=== PATIENT | male | born 1970 | race Caucasian/White ===

== ENCOUNTER 2017-12-17 11:28 | Emergency (ER) | payer OTHER ==
[2017-12-17] MEDS ORDERED: GLUCAGON 1 MG/ML VIAL IVP STA (11:54)
[2017-12-17] MEDS ORDERED: ONDANSETRON 4 MG/2 ML VIAL IVP STA (11:57)
--- NOTE | 2017-12-17 12:01 | ED ---
Skin/Abscess/FB HPI - General Chief complaint: Skin/Abscess/Foreign Body Stated complaint: difficulty swallowing Time Seen by Provider: 12/17/17 11:49 Source: patient Mode of arrival: ambulatory Limitations: no limitations - History of Present Illness Initial comments: 46-year-old male presenting with foreign body in esophagus. Patient states her last around 7 PM he choked on some steak and has been unable to tolerate anything by mouth since then. He states he has to spit out his oral secretions and cannot drink water. States this happened 10 years prior. Denies any history of eosinophilic esophagitis. Denies any other symptoms. - Related Data Home Medications Medication Instructions Recorded Confirmed No Known Home Medications [No 12/17/17 12/17/17 Known Home Medications] Allergies Allergy/AdvReac Type Severity Reaction Status Date / Time amoxicillin Allergy Rash/Hives Verified 12/17/17 13:46 Review of Systems ROS Statement: Those systems with pertinent positive or pertinent negative responses have been documented in the HPI. Review of Systems Constitutional: Denies fever, chills Eyes: Denies change in vision, Denies pain Ears, nose, mouth, throat: Denies headaches, Denies sore throat Cardiovascular: Denies chest pain. Denies palpitations Respiratory: Denies shortness of breath, Denies cough Gastrointestinal: Unable to eat or drink. Abdominal pain. Genitourinary: Denies hematuria, Denies infections Musculoskeletal: Denies pain, Denies swelling Integumentary: Denies rash Neurological: Denies headache, focal weakness, focal numbness Psychiatric: Denies anxiety, Denies depression Hematologic/Lymphatic: Denies easy bleeding or bruising ROS Other: All systems not noted in ROS Statement are negative. Past Medical History Past Medical History: No Reported History History of Any Multi-Drug Resistant Organisms: None Reported Past Surgical History: No Surgical Hx Reported Past Psychological History: No Psychological Hx Reported Smoking Status: Never smoker Past Alcohol Use History: Occasional Past Drug Use History: None Reported General Exam - General Exam Comments Initial Comments: General: Awake, alert, No acute Distress HENT: Normocephalic. Atraumatic Eyes: PERRL. EOMI. No scleral icterus. No injected conjunctiva Neck: Full ROM Chest/Lungs: Clear to auscultation bilaterally. No wheezing, rhonchi, or rales Cardiac: Regular rate, rhythm. No murmurs or rubs Abdomen/GI: [Soft, nontender, nondistended. No rebound, guarding, or rigidity. Musculoskeletal: Full ROM Skin: Warm, dry, intact Neurologic: A/Ox3, no weakness, no sensory deficit, no abdnormal gait, no coordination deficit Limitations: no limitations Course Vital Signs 12/17/17 12/17/17 11:45 14:33 Temperature 98.1 F 98.8 F Pulse Rate 82 80 Respiratory 18 12 Rate Blood Pressure 134/79 119/75 O2 Sat by Pulse 100 98 Oximetry Medical Decision Making - Medical Decision Making 46-year-old male presenting with concern for esophageal foreign body. Initial exam the patient awake, alert, no acute distress. VSS. Initial examination patient is handling his secretions and is no respiratory distress. 1236 Patient now able to tolerate small sips of water. Still admits to sensation of foreign body in distal esophagus. Will reevaluate shortly. 1303 Patient again unable to tolerate his secretions or PO. Paging Dr. Rivers [address] Rivers. He is agreeable to coming in for endoscope. Patient updated. He is declining anything for pain at this time. His airway is still intact. 1547 Patient had bedside EGD. Food bolus advanced to stomach. On evaluation post- procedure the patient is awake, alert, and in NAD. VSS. Airway intact. Pain resolved. The patient still for outpatient follow with his primary care physician Dr. Rivers. Patient's parents are in the ER instructions. Disposition Clinical Impression: Esophageal obstruction due to food impaction Disposition: HOME SELF-CARE Instructions: Esophageal Foreign Body (ED) Referrals: Rex Miles MD [Primary Care Provider] - 1-2 days Jasmeet Rivers MD [STAFF PHYSICIAN] - 1-2 days Decision to Admit Reason: Admit from EC
[2017-12-17] MEDS ORDERED: KETOROLAC 30 MG/ML 1 ML VIAL IVP PRN (13:19)
[2017-12-17] MEDS ORDERED: ONDANSETRON 4 MG/2 ML VIAL IVP PRN (13:19)
[2017-12-17] MEDS ORDERED: NALOXONE 0.4 MG/ML 1 ML VIAL IV PRN (13:19)
[2017-12-17] MEDS ORDERED: LACTATED RINGERS 1,000 ML IV SCH (13:30)
[2017-12-17] MEDS ORDERED: SODIUM CHLORIDE 0.9% 500 ML IV ONE (14:51)
[2017-12-17] MEDS ORDERED: PROPOFOL 10 MG/ML 20 ML VIAL IV ONE (15:09)
[2017-12-17] MEDS ORDERED: LIDOCAINE 1% INJ 10MG/ML (20 ML MDV) ONE (15:09)
[2017-12-17 16:26] VITALS: BP 122/79; PULSE 78; RESP 18; TEMP 99.3
--- NOTE | 2017-12-17 20:29 | PCN ---
PROCEDURE NOTE PROCEDURE: Esophagogastroduodenoscopy and removal of esophageal foreign body and obtaining biopsies from the esophagus. PREOPERATIVE DIAGNOSIS: Obstructive dysphagia. POSTOPERATIVE DIAGNOSES: 1. Impacted piece of meat in the esophagus and advanced into the stomach with gentle pressure with the endoscope. 2. Corrugated esophagus consistent with eosinophilic esophagitis. Biopsies obtained to rule out other etiology as well. 3. Hiatal hernia and superficial tear at the level of the GE junction noted after advancing the impacted piece of meat into the stomach. Preparation and sedation were provided by Anesthesia. BRIEF CLINICAL HISTORY: The patient is a 46-year-old male who presented to the emergency room with the complaint of obstructive dysphagia with inability to swallow, including his saliva, that started the prior night when he was eating steak. Apparently, over the years, the patient has always taken his time 1 while eating, drinking water frequently to flush his food into the stomach. He reports episodes in the past of difficulty with rice that would improve once he drinks water. This time, the feeling of obstruction continued and was bringing back any liquids he takes in. In the emergency room, he did not improve following glucagon. We were called in to the emergency room for endoscopic intervention. The patient denied history of acid reflux and has not been on acid reflux medications. PROCEDURE: With the patient on his left lateral decubitus position and after informed consent and adequate sedation, I passed the Olympus GIF-160 video upper endoscope through the cricopharyngeus down the esophagus. There were secretions and food debris in the proximal esophagus that were suctioned and the impacted piece of meat was seen in the distal esophagus. With gentle pressure with the endoscope, I was able to dislodge the piece of meat into the stomach. The esophagus appeared corrugated, consistent with eosinophilic esophagitis. GE junction was around 41 cm from the incisors and there was a small sliding hiatal hernia. There was a superficial mucosal tear that I noted in the distal esophagus at the level of the GE junction where the piece of meat was impacted. The endoscope was passed into the stomach which was insufflated with air and inspected in detail, including the retroflexed view in the cardia. The esophagus did not appear significantly stenotic on that maneuver. No other abnormalities were noted in the stomach. The pyloric channel, duodenal bulb, postbulbar area and descending duodenum appeared within normal limits. I obtained biopsies from the esophagus before the endoscope was withdrawn. The patient tolerated the procedure well. PLAN: The patient was reassured. I suggested that he stay on clear liquids today and advance his diet tomorrow as tolerated. I recommended that he chew his food well, especially the foods that give him difficulty. In the meantime, I gave him a prescription for omeprazole 20 mg daily and I will see him in followup in the office in around 6-8 weeks. Based on his course and biopsy results, I will consider specific treatments if this proves to be eosinophilic esophagitis and he remains symptomatic. I will keep you updated on his progress. MMODL / MORENON: [id number] /
== END 2017-12-17 16:25 | disposition home or self-care (01) ==
LOC: EC 11:28 → UNDOADMOB 13:19 → 3OBS 13:19 → EC 16:25
DX: T18.128A Food in esophagus causing other injury, initial encounter (principal); K22.2 Esophageal obstruction; Z88.0 Allergy status to penicillin
CPT/HCPCS: 43239; 43247; 99284; 96374; 96375; 96361; J1610; J2405; J2001; J2704; 88305

== ENCOUNTER 2020-11-21 00:58 | Inpatient (IN) | payer BC, OTHER ==
[2020-11-21] MEDS ORDERED: ACETAMINOPHEN TAB 500 MG TAB PO STA (01:16)
[2020-11-21] MEDS ORDERED: ALBUTEROL HFA INHALER INHALATION STA (01:16)
[2020-11-21] MEDS ORDERED: IBUPROFEN 800 MG TAB PO STA (01:17)
--- NOTE | 2020-11-21 01:18 | ED ---
SOB HPI - General Chief Complaint: Shortness of Breath Stated Complaint: MITCH Time Seen by Provider: 11/21/20 01:16 Source: patient, family, RN notes reviewed, old records reviewed Mode of arrival: wheelchair Limitations: physical limitation - History of Present Illness Initial Comments: 49-year-old male DF for evaluation. Patient Dese for severe shortness of breath. Weakness not feeling well. Fever, he does have chills and bodyaches, muscle pain. Patient does feel he has coronavirus. No other significant medical history takes no medications. Patient is unsure of what exposure was MD Complaint: shortness of breath, cough, pain with inspiration -: days(s) Severity: moderate Severity scale (1-10): 6 Quality: dull, throbbing Improves With: nothing Worsens With: exertion, movement Known History Of: other (none) Context: recent URI Associated Symptoms: pain with inspiration, fever, cough Treatments Prior to Arrival: none - Related Data Home Medications Medication Instructions Recorded Confirmed No Known Home Medications 12/17/17 12/17/17 Allergies Allergy/AdvReac Type Severity Reaction Status Date / Time amoxicillin Allergy Rash/Hives Verified 11/21/20 01:10 Review of Systems ROS Statement: Those systems with pertinent positive or pertinent negative responses have been documented in the HPI. ROS Other: All systems not noted in ROS Statement are negative. Past Medical History Past Medical History: No Reported History History of Any Multi-Drug Resistant Organisms: None Reported Past Surgical History: No Surgical Hx Reported Past Psychological History: No Psychological Hx Reported Smoking Status: Never smoker Past Alcohol Use History: Occasional Past Drug Use History: None Reported General Exam Limitations: physical limitation General appearance: alert, in no apparent distress, anxious Head exam: Present: atraumatic, normocephalic, normal inspection Eye exam: Present: normal appearance, PERRL, EOMI. Absent: scleral icterus, conjunctival injection, periorbital swelling ENT exam: Present: normal exam, mucous membranes moist Neck exam: Present: normal inspection. Absent: tenderness, meningismus, lymphadenopathy Respiratory exam: Present: normal lung sounds bilaterally. Absent: respiratory distress, wheezes, rales, rhonchi, stridor Cardiovascular Exam: Present: normal rhythm, tachycardia, normal heart sounds. Absent: systolic murmur, diastolic murmur, rubs, gallop, clicks GI/Abdominal exam: Present: soft, normal bowel sounds. Absent: distended, tenderness, guarding, rebound, rigid Extremities exam: Present: normal inspection, full ROM, normal capillary refill. Absent: tenderness, pedal edema, joint swelling, calf tenderness Back exam: Present: normal inspection Neurological exam: Present: alert, oriented X3, CN II-XII intact Psychiatric exam: Present: normal affect, normal mood Skin exam: Present: warm, dry, intact, normal color. Absent: rash Course Vital Signs 11/21/20 11/21/20 01:06 02:40 Temperature 103.2 F H 101.4 F H Pulse Rate 109 H 92 Respiratory 20 20 Rate Blood Pressure 115/68 104/62 O2 Sat by Pulse 84 L 90 L Oximetry - Reevaluation(s) Reevaluation #1: 11/21/20 01:24 Medical record is reviewed Medical Decision Making - Lab Data Result diagrams: 11/21/20 01:33 11/21/20 01:33 Lab Results 11/21/20 11/21/20 11/21/20 Range/Units 01:33 01:33 01:33 WBC 9.5 (3.8-10.6) k/uL RBC 5.24 (4.30-5.90) m/uL Hgb 15.5 (13.0-17.5) gm/dL Hct 44.8 (39.0-53.0) % MCV 85.6 (80.0-100.0) fL MCH 29.5 (25.0-35.0) pg MCHC 34.5 (31.0-37.0) g/dL RDW 13.0 (11.5-15.5) % Plt Count 240 (150-450) k/uL MPV 7.3 Neutrophils % 87 % Lymphocytes % 8 % Monocytes % 4 % Eosinophils % 0 % Basophils % 1 % Neutrophils # 8.3 H (1.3-7.7) k/uL Lymphocytes # 0.7 L (1.0-4.8) k/uL Monocytes # 0.3 (0-1.0) k/uL Eosinophils # 0.0 (0-0.7) k/uL Basophils # 0.1 (0-0.2) k/uL PT 10.4 (9.0-12.0) sec INR 1.0 (<1.2) APTT 29.1 (22.0-30.0) sec Sodium 129 L (137-145) mmol/L Potassium 3.6 (3.5-5.1) mmol/L Chloride 92 L (98-107) mmol/L Carbon Dioxide 26 (22-30) mmol/L Anion Gap 11 mmol/L BUN 17 (9-20) mg/dL Creatinine 1.08 (0.66-1.25) mg/dL Est GFR (CKD-EPI)AfAm >90 (>60 ml/min/1.73 sqM) Est GFR (CKD-EPI)NonAf 81 (>60 ml/min/1.73 sqM) Glucose 132 H (74-99) mg/dL Plasma Lactic Acid Angus (0.7-2.0) mmol/L Calcium 8.1 L (8.4-10.2) mg/dL Magnesium 1.9 (1.6-2.3) mg/dL Total Bilirubin 1.2 (0.2-1.3) mg/dL AST 59 (17-59) U/L ALT 34 (4-49) U/L Alkaline Phosphatase 66 (38-126) U/L Lactate Dehydrogenase 2115 H (313-618) U/L C-Reactive Protein 233.2 H (<10.0) mg/L Total Protein 6.3 (6.3-8.2) g/dL Albumin 3.5 (3.5-5.0) g/dL 11/21/20 Range/Units 01:33 WBC (3.8-10.6) k/uL RBC (4.30-5.90) m/uL Hgb (13.0-17.5) gm/dL Hct (39.0-53.0) % MCV (80.0-100.0) fL MCH (25.0-35.0) pg MCHC (31.0-37.0) g/dL RDW (11.5-15.5) % Plt Count (150-450) k/uL MPV Neutrophils % % Lymphocytes % % Monocytes % % Eosinophils % % Basophils % % Neutrophils # (1.3-7.7) k/uL Lymphocytes # (1.0-4.8) k/uL Monocytes # (0-1.0) k/uL Eosinophils # (0-0.7) k/uL Basophils # (0-0.2) k/uL PT (9.0-12.0) sec INR (<1.2) APTT (22.0-30.0) sec Sodium (137-145) mmol/L Potassium (3.5-5.1) mmol/L Chloride (98-107) mmol/L Carbon Dioxide (22-30) mmol/L Anion Gap mmol/L BUN (9-20) mg/dL Creatinine (0.66-1.25) mg/dL Est GFR (CKD-EPI)AfAm (>60 ml/min/1.73 sqM) Est GFR (CKD-EPI)NonAf (>60 ml/min/1.73 sqM) Glucose (74-99) mg/dL Plasma Lactic Acid Angus 1.5 (0.7-2.0) mmol/L Calcium (8.4-10.2) mg/dL Magnesium (1.6-2.3) mg/dL Total Bilirubin (0.2-1.3) mg/dL AST (17-59) U/L ALT (4-49) U/L Alkaline Phosphatase (38-126) U/L Lactate Dehydrogenase (313-618) U/L C-Reactive Protein (<10.0) mg/L Total Protein (6.3-8.2) g/dL Albumin (3.5-5.0) g/dL - EKG Data -: EKG Interpreted by Me (EKG is sinus tachycardia 102, VA 146 QRS 84 QTc 479) Disposition Clinical Impression: COVID-19, Hypoxia, Coronavirus infection Disposition: ADMITTED IP TO THIS HOSP Condition: Serious Is patient prescribed a controlled substance at d/c from ED?: No Referrals: Rex Miles MD [Primary Care Provider] - 1-2 days
[2020-11-21 01:49] LABS: Basophils # (A) 0.1 k/uL (0-0.2); Basophils % (A) 1 %; Eosinophils % (A) 0 %; HCT 44.8 % (39.0-53.0); HGB 15.5 gm/dL (13.0-17.5); Lymphocytes # (A) 0.7 k/uL (1.0-4.8); Lymphocytes % (A) 8 %; MCH 29.5 pg (25.0-35.0); MCHC 34.5 g/dL (31.0-37.0); MCV 85.6 fL (80.0-100.0); Mean Platelet Volume 7.3; Monocytes # (A) 0.3 k/uL (0-1.0); Monocytes % (A) 4 %; Neutrophils # (A) 8.3 k/uL (1.3-7.7); Neutrophils % (A) 87 %; Platelet Count 240 k/uL (150-450); RBC 5.24 m/uL (4.30-5.90); WBC 9.5 k/uL (3.8-10.6)
[2020-11-21 02:03] LABS: ALT 34 U/L (4-49); AST 59 U/L (17-59); African American GFR (CKD) >90 (>60 ml/min/1.73 sqM); Albumin 3.5 g/dL (3.5-5.0); Alkaline Phosphatase 66 U/L (38-126); Anion Gap 11 mmol/L; Blood Urea Nitrogen 17 mg/dL (9-20); Calcium 8.1 mg/dL (8.4-10.2); Carbon Dioxide 26 mmol/L (22-30); Chloride 92 mmol/L (98-107); Glucose 132 mg/dL (74-99); LDH 2115 U/L (313-618); Magnesium 1.9 mg/dL (1.6-2.3); Non-African American GFR(CKD) 81 (>60 ml/min/1.73 sqM); Potassium 3.6 mmol/L (3.5-5.1); Sodium 129 mmol/L (137-145); Total Bilirubin 1.2 mg/dL (0.2-1.3); Total Protein 6.3 g/dL (6.3-8.2)
--- NOTE | 2020-11-21 02:15 | XR ---
EXAM: XR Chest, 1 View CLINICAL HISTORY: ITS.REASON XR Reason: Suspected COVID-19 pneumonia TECHNIQUE: Frontal view of the chest. COMPARISON: No relevant prior studies available. FINDINGS: Lungs: Diffuse bilateral patchy opacities most prominent in the right lung and left base. Pleural space: No pleural effusion. No pneumothorax. Heart: Unremarkable. No cardiomegaly. Mediastinum: Unremarkable. Bones/joints: Unremarkable. IMPRESSION: Diffuse bilateral patchy opacities most prominent in the right lung and left base consistent with multifocal infection, compatible with COVID pneumonia.
[2020-11-21 02:21] LABS: C Reactive Protein 233.2 mg/L (<10.0); Partial Thromboplastin Time 29.1 sec (22.0-30.0); Prothrombin Time 10.4 sec (9.0-12.0)
[2020-11-21] MEDS ORDERED: DEXAMETHASONE SOD PHOSPHATE 10 MG/ML 1 ML VIAL IV STA (03:00)
[2020-11-21] MEDS ORDERED: NALOXONE 0.4 MG/ML 1 ML VIAL IV PRN (03:00)
[2020-11-21] MEDS ORDERED: IBUPROFEN 400 MG TAB PO PRN (03:00)
[2020-11-21] MEDS: ALBUTEROL HFA INHALER INHALATION PRN ×4 (07:24→20:11)
[2020-11-21] MEDS ORDERED: ENOXAPARIN 40 MG/0.4 ML SYRINGE SQ SCH (09:00)
--- NOTE | 2020-11-21 10:28 | P.CNPUL ---
History of Present Illness Consult date: 11/21/20 Requesting physician: Pipo Vasques Reason for consult: dyspnea, abnormal CXR/CT Chief complaint: Shortness of breath, cough, congestion History of present illness: This is a very pleasant 49-year-old gentleman who follows with Dr. Miels is his primary care provider. He has no significant past medical history. No home medications. He presented here to the emergency room early this morning with complaints of increasing shortness of breath, weakness, fatigue, chills, body aches muscle pain. He felt he had the mora virus. He does have a daughter who is currently positive. His symptoms have been going on for approximately 1 week now. Chest x-ray does show diffuse bilateral patchy opacities more so on the right lung. White count 9.5. Hemoglobin 15.5. Lymphocytes 0.7. Sodium 12 9. Potassium 3.6. Creatinine 1.08. LDH 2115. C-reactive protein 233. Mora virus not detected. Patient is seen today in consultation in the emergency room. He is currently sitting up on a stretcher. Awake and alert in no acute distress. He is requiring 6 L high flow nasal cannula to maintain O2 saturations in the 90s. He said T-max of 103.2. Currently afebrile. His received Decadron. Motrin, albuterol. Review of Systems REVIEW OF SYSTEMS: CONSTITUTIONAL: Negative for generalized weakness, fatigue, fever. Denies any recent significant weight loss or weight gain. EYES: Denies change in vision. EARS, NOSE, MOUTH, THROAT: Denies headaches, denies sore throat. CARDIOVASCULAR: Denies chest pain, palpitations or syncopal episodes. RESPIRATORY: Positive for shortness of breath, cough, congestion no hemoptysis. GASTROINTESTINAL: Denies change in appetite, denies abdominal pain GENITOURINARY: Denies hematuria, denies infections. MUSKULOSKELETAL: Denies pain, denies swelling. INTEGUMENTARY: Denies rash, denies eczema. NEUROLOGICAL: Denies recent memory loss, no recent seizure activity. PSYCHIATRIC: Denies anxiety, denies depression. HEMATOLOGIC/LYMPHATIC: Denies anemia, denies enlarged lymph nodes. Past Medical History Past Medical History: No Reported History History of Any Multi-Drug Resistant Organisms: None Reported Past Surgical History: No Surgical Hx Reported Past Psychological History: No Psychological Hx Reported Smoking Status: Never smoker Past Alcohol Use History: Occasional Past Drug Use History: None Reported Medications and Allergies Home Medications Medication Instructions Recorded Confirmed Type No Known Home Medications 12/17/17 11/21/20 History Allergies Allergy/AdvReac Type Severity Reaction Status Date / Time amoxicillin Allergy Rash/Hives Verified 11/21/20 06:35 Physical Exam Vitals: Vital Signs Temp Pulse Resp BP Pulse Ox 11/21/20 09:36 90 L 11/21/20 09:00 81 26 H 126/80 90 L 11/21/20 08:30 80 21 119/81 95 11/21/20 08:00 79 19 130/84 95 11/21/20 07:32 93 L 11/21/20 07:30 77 24 120/80 90 L 11/21/20 07:14 97.4 F L 11/21/20 07:00 73 23 104/75 90 L 11/21/20 06:20 73 18 107/72 92 L 11/21/20 04:30 99.4 F 80 18 105/76 92 L 11/21/20 02:40 101.4 F H 92 20 104/62 90 L 11/21/20 01:06 103.2 F H 109 H 20 115/68 84 L Intake and Output 11/20/20 11/21/20 11/21/20 22:59 06:59 14:59 Other: Weight 122.47 kg GENERAL EXAM: Alert, pleasant 49-year-old gentleman, on 6 L nasal cannula, comfortable in no apparent distress. HEAD: Normocephalic. EYES: Normal reaction of pupils, equal size. NOSE: Clear with pink turbinates. THROAT: No erythema or exudates. NECK: No masses, no JVD. CHEST: No chest wall deformity. LUNGS: Equal air entry with scattered rhonchi, crackles in posterior bases. CVS: S1 and S2 normal with no audible murmur, regular rhythm. ABDOMEN: No hepatosplenomegaly, normal bowel sounds, no guarding or rigidity. SPINE: No scoliosis or deformity SKIN: No rashes CENTRAL NERVOUS SYSTEM: No focal deficits, tone is normal in all 4 extremities. EXTREMITIES: There is no peripheral edema. No clubbing, no cyanosis. Peripheral pulses are intact. Results - Laboratory Findings CBC and BMP: 11/21/20 01:33 11/21/20 01:33 PT/INR, D-dimer PT 10.4 sec (9.0-12.0) 11/21/20 01:33 INR 1.0 (<1.2) 11/21/20 01:33 Abnormal lab findings: Abnormal Labs 11/21/20 11/21/20 01:33 01:33 Neutrophils # 8.3 H Lymphocytes # 0.7 L Sodium 129 L Chloride 92 L Glucose 132 H Calcium 8.1 L Lactate Dehydrogenase 2115 H C-Reactive Protein 233.2 H - Diagnostic Findings Chest x-ray: image reviewed Assessment and Plan Assessment: 1 Acute hypoxic respiratory failure secondary to suspected CoVID 19 pneumonia though negative by PCR, versus community-acquired pneumonia 2 Elevated inflammatory markers secondary to above 3 Febrile illness secondary to above 4 Hyponatremia Plan: The patient was seen and evaluated by Dr. Pierre Chest x-ray and labs reviewed Suspicious for CoVID 19 pneumonia Obtain coronavirus antibodies Obtain pro-calcitonin Obtain a d-dimer Continue dexamethasone, Lovenox, vitamin supplements We will continue to follow and make further recommendations based on his clinical status I, the cosigning physician, performed a history & physical examination of the patient. Lungs sounds with scattered rhonchi, crackles in the posterior bases. Maintaining good O2 saturations in the 90s on 6 L high flow nasal cannula. I discussed the assessment and plan of care with my nurse practitioner, Nguyen Silva. I attest to the above consultation as dictated by her. Time with Patient: Greater than 30
[2020-11-21] MEDS: CHOLECALCIFEROL 25 MCG (1000 IU) TABLET PO SCH (12:37)
[2020-11-21] MEDS: ASCORBIC ACID 500 MG TAB PO SCH (12:37)
[2020-11-21] MEDS: ZINC SULFATE 220 MG CAP PO SCH (12:37)
[2020-11-21] MEDS ORDERED: LEVOFLOXACIN 750MG-D5W PMX 750 MG in DEXTROSE/WATER 1 150ML.BAG IVPB STA (15:28)
[2020-11-21] MEDS: FAMOTIDINE 20 MG TAB PO SCH ×2 (16:04→23:50)
[2020-11-21] MEDS: ACETAMINOPHEN TAB 325 MG TAB PO PRN ×2 (16:58→23:55)
--- NOTE | 2020-11-21 22:24 | P.HPIM ---
History of Present Illness H&P Date: 11/21/20 Chief Complaint: Short of breath History of presenting complaint: This is a pleasant 49-year-old patient who follows with Dr. Rex Miles. Patient otherwise in good health. Patient's older daughter has got COVID. One week patient started getting slowly progressively more short of breath. Cough. No sputum. Fever and chills. Some decrease in taste and smell. No diarrhea aching all over. Significant headache. Symptoms progressed decided to come in. Patient has tested positive for COVID. 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 . Family history: Reviewed, noncontributory to presentation Physical examination: VITAL SIGNS: 101.4, 92, 20, 104/62, 90% on 4 L GENERAL: BMI 34.7, sitting up on the bed, tired. EYES: Pupils equal. Conjunctiva normal. HEENT: External appearance of nose and ears normal, oral cavity grossly normal. NECK: JVD not raised; masses not palpable. HEART: First and second heart sounds are normal; no edema. LUNGS: Respiratory rate increased, fine expiratory crackles. ABDOMEN: Soft, nontender, liver spleen not palpable, no masses palpable. PSYCH: Alert and oriented x3; mood and affect tiredl. NEUROLOGICAL: Cranial nerves grossly intact; no facial asymmetry, power and sensation grossly intact. LYMPHATICS: No lymph nodes palpable in the axilla and neck INVESTIGATIONS, reviewed in the clinical context: WBC 9.5 hemoglobin 15.5 platelets 240 lymphocytes 0.7 sodium 129 potassium 3.6 creatinine 1.08 CRP 223 pro-calcitonin 0.68 Coronavirus [PCR]-not detected by rapid testing d-dimer 0.91 EKG tracing personally reviewed by me-normal sinus rhythm nonspecific ST segment changes Chest x-ray film personally reviewed by me-bilateral infiltrates Assessment and plan: -This is a patient is given a classical presentation of COVID 19 pneumonia. With several systemics features positive d-dimer positive CRP and a rather classical checks x-ray finding. Given the patient's rapid test for PCR is negative. We will repeat the same. Patient be placed on dexamethasone Lovenox. Pulmonary consulted -Acute hypoxic respiratory failure from COVID 19 pneumonia -Obesity BMI 34.7 -Sepsis from COVID 19 pneumonia Care was discussed with the patient. Questions answered. Given the complexity and severity of patient's condition expect the patient to be in the hospital at least for 2 overnights Past Medical History Past Medical History: No Reported History History of Any Multi-Drug Resistant Organisms: None Reported Past Surgical History: No Surgical Hx Reported Past Psychological History: No Psychological Hx Reported Smoking Status: Never smoker Past Alcohol Use History: Occasional Past Drug Use History: None Reported Medications and Allergies Home Medications Medication Instructions Recorded Confirmed Type No Known Home Medications 12/17/17 11/21/20 History Allergies Allergy/AdvReac Type Severity Reaction Status Date / Time amoxicillin Allergy Rash/Hives Verified 11/21/20 06:35 Physical Exam Vitals: Vital Signs Temp Pulse Resp BP Pulse Ox 11/21/20 09:36 90 L 11/21/20 09:00 81 26 H 126/80 90 L 11/21/20 08:30 80 21 119/81 95 11/21/20 08:00 79 19 130/84 95 11/21/20 07:32 93 L 11/21/20 07:30 77 24 120/80 90 L 11/21/20 07:14 97.4 F L 11/21/20 07:00 73 23 104/75 90 L 11/21/20 06:20 73 18 107/72 92 L 11/21/20 04:30 99.4 F 80 18 105/76 92 L 11/21/20 02:40 101.4 F H 92 20 104/62 90 L 11/21/20 01:06 103.2 F H 109 H 20 115/68 84 L Intake and Output 11/20/20 11/21/20 11/21/20 22:59 06:59 14:59 Other: Weight 122.47 kg Results CBC & Chem 7: 11/21/20 01:33 11/21/20 01:33 Labs: Abnormal Lab Results - Last 24 Hours (Table) 11/21/20 11/21/20 Range/Units 01:33 01:33 Neutrophils # 8.3 H (1.3-7.7) k/uL Lymphocytes # 0.7 L (1.0-4.8) k/uL Sodium 129 L (137-145) mmol/L Chloride 92 L (98-107) mmol/L Glucose 132 H (74-99) mg/dL Calcium 8.1 L (8.4-10.2) mg/dL Lactate Dehydrogenase 2115 H (313-618) U/L C-Reactive Protein 233.2 H (<10.0) mg/L
[2020-11-21] MEDS: ENOXAPARIN 40 MG/0.4 ML SYRINGE SQ SCH (23:51)
[2020-11-22] MEDS: ALBUTEROL HFA INHALER INHALATION PRN ×5 (01:27→20:42)
--- NOTE | 2020-11-22 07:02 | CONS ---
CONSULTATION DATE OF SERVICE: 11/21/2020 REASON FOR CONSULTATION: Pneumonia. HISTORY OF PRESENT ILLNESS: The patient is a 49-year-old male with no significant past medical history. 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 The patient's daughter got sick with COVID about a week and half ago. Patient started getting sick about a week ago. Symptoms have been mostly generalized weakness, no energy and he started having a cough which has been moderate in intensity. No significant sputum production with associated shortness of breath. With these symptoms, in addition to the fever, chills and body aches, the patient presented to the hospital with concern for COVID-19 infection. On arrival to the ER, patient did have a fever of 103 degrees Fahrenheit. The patient was tachycardic with a heart rate of 109. Patient was hypoxic with O2 sats of 84%. The patient did have a normal white count with lymphopenia. D-dimer elevated 0.91 and LDH and CRP elevated. Procalcitonin 0.68. Mora PCR came back negative which is currently repeated and is pending. The patient did have a chest x-ray with bilateral diffuse infiltrate most prominent in the right lung and left base consistent with multifocal infection. The patient was admitted to the hospital. Infectious Disease was consulted for further management of antibiotic therapy. REVIEW OF SYSTEMS: Positive points have been mentioned in HPI. Rest of systems are negative. PAST MEDICAL HISTORY: No major illnesses. PAST SURGICAL HISTORY: No surgeries. SOCIAL HISTORY: Patient denies smoking. Occasionally drinks. No drug use. FAMILY HISTORY: No pertinent findings noticed. ALLERGIES: AMOXICILLIN with rash. No history of anaphylaxis. MEDICATIONS: The patient is currently on Tylenol, Ventolin, vitamin C, vitamin D3, dexamethasone, Lovenox, Pepcid, Motrin, Narcan and zinc. PHYSICAL EXAMINATION: VITAL SIGNS: Blood pressure 128/75 with a pulse of 84, temperature 98.2, he is 90% on 6 L nasal cannula. GENERAL DESCRIPTION: Patient is a middle-aged male lying in bed in no distress. No tachypnea or accessory muscles of respiration use. HEENT: Examination shows no pallor or scleral icterus. Oral mucous membrane is dry. NECK: Trachea central, no thyromegaly. LUNGS: Unlabored breathing, coarse breath sounds bilaterally. No wheeze. HEART: S1-S2, regular rate and rhythm. ABDOMEN: Soft, no tenderness. No guarding or rigidity. EXTREMITIES: No edema of the feet. SKIN: No rash or mass palpable. NEUROLOGICAL: Patient is awake, alert, oriented times three. Mood and affect normal. LABS: Hemoglobin 15.5, white count 9.5, lymphocyte count 0.7. BUN of 17, creatinine 1.08. Liver enzymes are normal. LDH and CRP are elevated. Chest x-ray report as mentioned above. DIAGNOSTIC IMPRESSION AND PLAN: Patient admitted to the hospital with sepsis in this patient who did have fever and tachycardia source is likely pneumonia in high clinical suspicion for COVID-19 infection, possible false negative initial COVID testing and repeat testing has been ordered which is currently pending. The patient also has elevated procalcitonin. Underlying bacterial pneumonia not entirely excluded either with diffuse interstitial infiltrate. We will need to cover for atypical pathogen. PLAN: 1. We will try to obtain sputum for Gram stain and culture and check urine for Legionella antigen. 2. Repeat COVID testing . 3. We will start the patient on Levaquin 750 mg daily. 4. Continue patient on dexamethasone, Lovenox, zinc, ascorbic acid. 5. Droplet isolation and respiratory support. 6. We will follow on his clinical condition to further adjust medication if needed. Thank you for this consultation. Will follow this patient along with you. MMMITCHL / MORENON: [id number] /
[2020-11-22] MEDS: ASCORBIC ACID 500 MG TAB PO SCH (08:30)
[2020-11-22] MEDS: FAMOTIDINE 20 MG TAB PO SCH ×2 (08:30→19:46)
[2020-11-22] MEDS: ZINC SULFATE 220 MG CAP PO SCH (08:30)
[2020-11-22] MEDS: CHOLECALCIFEROL 25 MCG (1000 IU) TABLET PO SCH (08:30)
[2020-11-22] MEDS: ACETAMINOPHEN TAB 325 MG TAB PO PRN (08:30)
[2020-11-22] MEDS: ENOXAPARIN 40 MG/0.4 ML SYRINGE SQ SCH ×2 (08:34→19:46)
[2020-11-22] MEDS ORDERED: dexAMETHasone 2 MG TAB PO SCH (09:00)
[2020-11-22] MEDS ORDERED: LEVOFLOXACIN 750 MG TAB PO SCH (09:00)
[2020-11-22 11:30] LABS: Basophils # (A) 0.02 X 10*3/uL (0.00-0.10); Basophils % (A) 0.2 %; Eosinophils # (A) 0 X 10*3/uL (0.04-0.35); Eosinophils % (A) 0 %; HCT 46.4 % (39.6-50.0); HGB 15.6 g/dL (13.0-17.0); Lymphocytes # (A) 0.87 X 10*3/uL (0.90-5.00); MCH 29.2 pg (27.0-32.0); MCHC 33.6 g/dL (32.0-37.0); MCV 86.9 fL (80.0-97.0); Mean Platelet Volume 10.5 fL (9.5-12.2); Monocytes # (A) 0.41 X 10*3/uL (0.20-1.00); Monocytes % (A) 3.3 %; Neutrophils # (A) 11.11 X 10*3/uL (1.80-7.70); Neutrophils % (A) 88.8 %; Platelet Count 319 X 10*3/uL (140-440); RBC 5.34 X 10*6/uL (4.40-5.60); RDW 13.4 % (11.5-14.5)
[2020-11-22 11:44] LABS: African American GFR (CKD) 75.3 (60.0-200.0); Albumin 4.2 g/dL (3.80-4.90); Albumin/Globulin Ratio 1.91 (1.60-3.17); Anion Gap 9.9 mmol/L (4.00-12.00); BUN/Creat Ratio 19.23 Ratio (12.00-20.00); Calcium 8.9 mg/dL (8.7-10.3); Carbon Dioxide 30.1 mmol/L (21.6-31.8); Globulin 2.2 g/dL (1.6-3.3); Magnesium 2.4 mg/dL (1.5-2.4); Phosphorus 2.8 mg/dL (2.4-5.1); Potassium 4.4 mmol/L (3.5-5.5); Total Bilirubin 0.9 mg/dL (0.3-1.2); Total Protein 6.4 g/dL (6.2-8.2)
--- NOTE | 2020-11-22 15:45 | P.PN ---
Subjective Progress Note Date: 11/22/20 Principal diagnosis: Acute respiratory failure. This is a very pleasant 49-year-old gentleman who follows with Dr. Miles is his primary care provider. He has no significant past medical history. No home medications. He presented here to the emergency room early this morning with complaints of increasing shortness of breath, weakness, fatigue, chills, body aches muscle pain. He felt he had the woods virus. He does have a daughter who is currently positive. His symptoms have been going on for approximately 1 week now. Chest x-ray does show diffuse bilateral patchy opacities more so on the right lung. White count 9.5. Hemoglobin 15.5. Lymphocytes 0.7. Sodium 129. Potassium 3.6. Creatinine 1.08. LDH 2115. C-reactive protein 233. Woods virus not detected. Patient is seen today in consultation in the emergency room. He is currently sitting up on a stretcher. Awake and alert in no acute distress. He is requiring 6 L high flow nasal cannula to maintain O2 saturations in the 90s. He said T-max of 103.2. Currently afebrile. His received Decadron. Motrin, albuterol. Progress note dated 11/22/2020. This is a pleasant 49-year-old male who sees Dr. Rex Miles as his primary care provider. He has no significant past medical history. He takes no medications at home. He presented to the emergency room with complaints of increasing shortness of breath, he is, fatigue, chills, body aches, muscle pain. He thought he might have COVID 19. He was exposed to his daughter who tested positive. His symptoms have been present for about one week or so. Chest x-ray showed diffuse bilateral patchy infiltrates. COVID testing here was negative. Currently, he is on O2 high flow oxygen, 8 L, with a saturation of 90%. White count is 12.5, hemoglobin 15.6, hematocrit 46.4, platelet count 319,000. D- dimer was 0.91. Sodium 135, potassium 4.4, chlorides 95, CO2 30, anion gap 10, BUN 25, and creatinine 1.3. His repeat test was in fact positive. Objective - Vital Signs Vital signs: Vital Signs Temp 98.2 F 11/22/20 13:53 Pulse 88 11/22/20 13:53 Resp 20 11/22/20 13:53 BP 117/77 11/22/20 13:53 Pulse Ox 90 L 11/22/20 13:53 Intake & Output 11/21/20 11/22/20 11/22/20 18:59 06:59 18:59 Intake Total 300 Output Total 500 Balance -500 300 Weight 122.47 kg Intake: Oral 300 Output: Urine 500 - Exam No acute distress, oriented 3. Currently, patient on 8 L high flow oxygen therapy. No conversational dyspnea or audible wheezing, or use of accessory muscles. HEENT examination is grossly unremarkable. Mucous membranes are moist. No oral lesions. Neck supple. Full range of motion. No adenopathy thyromegaly or neck vein distention. Cardiovascular examination reveals regular rhythm rate. S1-S2 normal. No S3 or S4. No discernible murmur noted. Heart rate is 88 bpm. Lungs reveal scattered bilateral rhonchi and a few scattered crackles. No whe ezes. Breath sounds equal bilaterally. Abdomen soft bowel sounds are heard. No masses or tenderness. Extremities are intact. No cyanosis clubbing or edema. Skin is without rash or lesion. Neurologic examination is brief but nonfocal. - Labs CBC & Chem 7: 11/22/20 07:34 11/22/20 07:34 Labs: Abnormal Lab Results - Last 24 Hours (Table) 11/21/20 11/22/20 11/22/20 Range/Units 13:40 07:34 07:34 WBC 12.50 H (4.50-10.00) X 10*3/uL Immature Gran # 0.09 H (0.00-0.04) X 10*3/uL Neutrophils # 11.11 H (1.80-7.70) X 10*3/uL Lymphocytes # 0.87 L (0.90-5.00) X 10*3/uL Eosinophils # 0 L (0.04-0.35) X 10*3/uL Chloride 95 L (96-109) mmol/L AST 50 H (14-35) U/L Coronavirus (PCR) Detected A (Not Detected) Microbiology - Last 24 Hours (Table) 11/21/20 20:14 Gram Stain - Preliminary Sputum Sputum Culture - Preliminary Assessment and Plan Assessment: Acute hypoxemic respiratory failure, secondary to COVID 19 pneumonia/pneumonitis, testing positive on his second test. Elevated inflammatory markers secondary to COVID 19 pneumonia. Fever, secondary to COVID 19. Mild hyponatremia, resolved. Plan: Plan dated 11/22/2020. The patient's second COVID test was in fact positive. He suspected as much. Currently, the patient's on an albuterol inhaler, vitamin C, vitamin D3, zinc, Decadron, and Lovenox. The patient is also on Levaquin, but now that the COVID test came back positive, I think the Levaquin can be discontinued. One could argue for the addition of REM. We will continue to follow. Prognosis is guarded. Time with Patient: Less than 30
[2020-11-22] MEDS ORDERED: REMDESIVIR 200 MG in SODIUM CHLORIDE 0.9% 250 ML IVPB ONE (17:00)
--- NOTE | 2020-11-22 17:01 | PN ---
PROGRESS NOTE DATE OF SERVICE: 11/22/2020 REASON FOR FOLLOWUP: COVID-19 pneumonia. INTERVAL HISTORY: Patient is currently afebrile. The patient is breathing slightly comfortably however he is still requiring high-flow oxygen and saturating around 90%. Denies having any chest pain. He did have a cough with occasional sputum. No hemoptysis. No abdominal pain. No diarrhea. PHYSICAL EXAMINATION: Blood pressure is 117/77 with a pulse of 88, temperature of 98.2. He is 90% on 8 liters nasal cannula. GENERAL DESCRIPTION: A middle-aged male lying in bed in no distress. RESPIRATORY SYSTEM: Unlabored breathing, coarse breath sounds in the bases bilaterally. HEART: S1, S2. Regular rate and rhythm. ABDOMEN: Soft, no tenderness. LABS: Hemoglobin is 15.2, white count 12.5. D-dimer is 0.91. Urine for Legionella is negative. COVID PCR came back positive. DIAGNOSTIC IMPRESSION AND PLAN: Patient with acute COVID-19 pneumonia in this patient who is still requiring high flow oxygen. Symptoms have been about a week. Clinically doubt secondary bacterial pneumonia. We will discontinue the Levaquin. Remdesivir has been started and that will help the patient. Continue supportive care. MMODL / IJN: [id number] /
--- NOTE | 2020-11-22 22:57 | P.PN ---
Progress Note - Text Progress Note Date: 11/22/20 Chief Complaint: Short of breath History of presenting complaint: This is a pleasant 49-year-old patient who follows with Dr. Rex Miles. Patient otherwise in good health. Patient's older daughter has got COVID. One week patient started getting slowly progressively more short of breath. Cough. No sputum. Fever and chills. Some decrease in taste and smell. No diarrhea aching all over. Significant headache. Symptoms progressed decided to come in. Patient has tested positive for COVID. Today-sitting up in bed. Short of breath. Nasal cannula. A bit congested. Eating some. Review of systems: Was done for constitutional, cardiovascular, GI, pulmonary. relevant finding as above Active Medications Acetaminophen (Acetaminophen Tab 325 Mg Tab) 650 mg PO Q6HR PRN PRN Reason: Mild Pain or Fever > 100.5 Last Admin: 11/22/20 08:30 Dose: 650 mg Documented by: Albuterol Sulfate (Albuterol Hfa Inhaler) 2 puff INHALATION RT-QID PRN PRN Reason: Shortness Of Breath Or Wheezing Last Admin: 11/22/20 20:42 Dose: 2 puff Documented by: Ascorbic Acid (Ascorbic Acid 500 Mg Tab) 1,000 mg PO DAILY [facility] Last Admin: 11/22/20 08:30 Dose: 1,000 mg Documented by: Cholecalciferol (Cholecalciferol 25 Mcg (1000 Iu) Tablet) 25 mcg PO DAILY [facility] Last Admin: 11/22/20 08:30 Dose: 25 mcg Documented by: Dexamethasone (Dexamethasone 2 Mg Tab) 6 mg PO DAILY [facility] Last Admin: 11/22/20 08:30 Dose: 6 mg Documented by: Enoxaparin Sodium (Enoxaparin 40 Mg/0.4 Ml Syringe) 40 mg SQ BID [facility] Last Admin: 11/22/20 19:46 Dose: 40 mg Documented by: Famotidine (Famotidine 20 Mg Tab) 20 mg PO BID [facility] Last Admin: 11/22/20 19:46 Dose: 20 mg Documented by: Remdesivir 100 mg/ Sodium (Chloride) 250 mls @ 250 mls/hr IVPB DAILY@1700 [facility] Stop: 11/26/20 17:59 Ibuprofen (Ibuprofen 400 Mg Tab) 400 mg PO Q6HR PRN PRN Reason: Mild Pain or Fever > 100.5 Naloxone HCl (Naloxone 0.4 Mg/Ml 1 Ml Vial) 0.2 mg IV Q2M PRN PRN Reason: Opioid Reversal Zinc Sulfate (Zinc Sulfate 220 Mg Cap) 220 mg PO DAILY [facility] Last Admin: 11/22/20 08:30 Dose: 220 mg Documented by: Past medical history to include: 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 . Family history: Reviewed, noncontributory to presentation Physical examination: VITAL SIGNS: 98.2, 88, 20, 117/77, 90% on 8 L GENERAL: A reclining in bed, tired, short of breath NEUROLOGICAL: Cranial nerves grossly intact. Moving all 4 limbs PSYCH: Alert and oriented x3; mood and affect tiredl. Rest of the exam per pulmonary and nursing INVESTIGATIONS, reviewed in the clinical context: November 22: WBC 12.5 hemoglobin 15.6 Repeat Coronavirus [PCR]: November 21: Detected WBC 9.5 hemoglobin 15.5 platelets 240 lymphocytes 0.7 sodium 129 potassium 3.6 creatinine 1.08 CRP 223 pro-calcitonin 0.68 Coronavirus [PCR]-not detected by rapid testing d-dimer 0.91 EKG tracing personally reviewed by me-normal sinus rhythm nonspecific ST segment changes Chest x-ray film personally reviewed by me-bilateral infiltrates Assessment and plan: -COVID 19 pneumonia. dexamethasone Lovenox. Some clinical worsening. Remdesivir -Acute hypoxic respiratory failure from COVID 19 pneumonia. Worsening. On 8 L nasal cannula -Obesity BMI 34.7 -Sepsis from COVID 19 pneumonia Care was discussed with the patient. Follow with pulmonary, ID
[2020-11-23] MEDS: ALBUTEROL HFA INHALER INHALATION PRN ×3 (08:31→21:55)
[2020-11-23] MEDS: CHOLECALCIFEROL 25 MCG (1000 IU) TABLET PO SCH (09:14)
[2020-11-23] MEDS: ENOXAPARIN 40 MG/0.4 ML SYRINGE SQ SCH ×2 (09:14→20:58)
[2020-11-23] MEDS: ASCORBIC ACID 500 MG TAB PO SCH (09:15)
[2020-11-23] MEDS: FAMOTIDINE 20 MG TAB PO SCH ×2 (09:15→20:58)
[2020-11-23] MEDS: DEXAMETHASONE SOD PHOSPHATE 10 MG/ML 1 ML VIAL IV SCH (09:15)
[2020-11-23] MEDS: ZINC SULFATE 220 MG CAP PO SCH (09:15)
--- NOTE | 2020-11-23 09:45 | XR ---
EXAMINATION TYPE: XR chest 1V portable DATE OF EXAM: 11/23/2020 COMPARISON: 11/21/2020 INDICATION: Pneumonia TECHNIQUE: Single frontal view of the chest is obtained. FINDINGS: The heart size is normal. The pulmonary vasculature is normal. Patchy bilateral lung infiltrates are present similar to prior study. Findings could be compatible wi th atypical pneumonia. IMPRESSION: 1. Stable patchy bilateral lung infiltrates. Continued follow-up is recommended.
--- NOTE | 2020-11-23 15:02 | P.PN ---
Subjective Progress Note Date: 11/23/20 Principal diagnosis: Acute respiratory failure. This is a very pleasant 49-year-old gentleman who follows with Dr. Miles is his primary care provider. He has no significant past medical history. No home medications. He presented here to the emergency room early this morning with complaints of increasing shortness of breath, weakness, fatigue, chills, body aches muscle pain. He felt he had the woods virus. He does have a daughter who is currently positive. His symptoms have been going on for approximately 1 week now. Chest x-ray does show diffuse bilateral patchy opacities more so on the right lung. White count 9.5. Hemoglobin 15.5. Lymphocytes 0.7. Sodium 129. Potassium 3.6. Creatinine 1.08. LDH 2115. C-reactive protein 233. Woods virus not detected. Patient is seen today in consultation in the emergency room. He is currently sitting up on a stretcher. Awake and alert in no acute distress. He is requiring 6 L high flow nasal cannula to maintain O2 saturations in the 90s. He said T-max of 103.2. Currently afebrile. His received Decadron. Motrin, albuterol. Progress note dated 11/22/2020. This is a pleasant 49-year-old male who sees Dr. Rex Miles as his primary care provider. He has no significant past medical history. He takes no medications at home. He presented to the emergency room with complaints of increasing shortness of breath, he is, fatigue, chills, body aches, muscle pain. He thought he might have COVID 19. He was exposed to his daughter who tested positive. His symptoms have been present for about one week or so. Chest x-ray showed diffuse bilateral patchy infiltrates. COVID testing here was negative. Currently, he is on O2 high flow oxygen, 8 L, with a saturation of 90%. White count is 12.5, hemoglobin 15.6, hematocrit 46.4, platelet count 319,000. D- dimer was 0.91. Sodium 135, potassium 4.4, chlorides 95, CO2 30, anion gap 10, BUN 25, and creatinine 1.3. His repeat test was in fact positive. Progress note dated 11/23/2020. Pleasant 49-year-old male, who sees Dr. Rex Miles as his primary. He has no symptoms and past medical history, and takes no medications at home. He presented to the emergency department with complaints of increasing shortness of breath, fatigue, chills, body aches, and muscle pain. He thought he might have COVID 19. He was apparently exposed to his daughter who tested positive. His initial test was negative, but his symptoms, x-rays, and laboratory data all pointed towards coronavirus as the etiology of his symptoms. Sure enough, his repeat test was positive. D-dimer today was 1.24. C-reactive protein was 82.9. The patient is feeling maybe a bit better today than he did yesterday. Currently he is on 8 L high flow O2, with saturations of 93%. Chest x-ray showed stable patchy bilateral infiltrates. Objective - Vital Signs Vital signs: Vital Signs Temp 98.1 F 11/23/20 13:45 Pulse 72 11/23/20 13:45 Resp 20 11/23/20 13:45 BP 122/79 11/23/20 13:45 Pulse Ox 93 L 11/23/20 13:45 Intake & Output 11/22/20 11/23/20 11/23/20 18:59 06:59 18:59 Intake Total 600 240 Output Total 400 Balance 200 240 Intake: Oral 600 240 Output: Urine 400 Other: # Voids 2 - Exam No acute distress, oriented 3. Currently, patient on 8 L high flow oxygen therapy. No conversational dyspnea or audible wheezing, or use of accessory muscles. HEENT examination is grossly unremarkable. Mucous membranes are moist. No oral lesions. Neck supple. Full range of motion. No adenopathy thyromegaly or neck vein distention. Cardiovascular examination reveals regular rhythm rate. S1-S2 normal. No S3 or S4. No discernible murmur noted. Heart rate is 72 bpm. Lungs reveal diffuse bilateral crackles and rhonchi. There are no wheezes. Breath sounds equal bilaterally. Exam is essentially unchanged. Abdomen soft bowel sounds are heard. No masses or tenderness. Extremities are intact. No cyanosis clubbing or edema. Skin is without rash or lesion. Neurologic examination is brief but nonfocal. - Labs CBC & Chem 7: 11/22/20 07:34 11/22/20 07:34 Labs: Abnormal Lab Results - Last 24 Hours (Table) 11/22/20 11/23/20 11/23/20 Range/Units 07:34 06:43 06:43 D-Dimer 1.24 H (<0.60) mg/L FEU C-Reactive Protein 82.9 H (<10.0) mg/L SARS-CoV-2 Ab,Total Reactive A (Non-Reactive) Microbiology - Last 24 Hours (Table) 11/21/20 16:20 Blood Culture - Preliminary Blood No Growth after 24 hours 11/21/20 16:00 Blood Culture - Preliminary Blood No Growth after 24 hours Assessment and Plan Assessment: Acute hypoxemic respiratory failure, secondary to COVID 19 pneumonia/pneumonitis, testing positive on his second test. Elevated inflammatory markers secondary to COVID 19 pneumonia. Fever, secondary to COVID 19. Mild hyponatremia, resolved. Plan: Plan dated 11/23/2020. The patient's second COVID test was in fact positive. We suspected as much. Currently, the patient's on an albuterol inhaler, vitamin C, vitamin D3, zinc, Decadron, and Lovenox. The patient's Levaquin was discontinued. We did start him on REM. His first dose was yesterday. He will get over the next 4 days. We will continue to watch patient closely. The patient's chest x-ray is unchanged. His overall prognosis is guarded. Additional recommendations and suggestions are forthcoming. Time with Patient: Less than 30
[2020-11-23] MEDS: REMDESIVIR 100 MG in SODIUM CHLORIDE 0.9% 250 ML IVPB SCH (16:18)
--- NOTE | 2020-11-23 21:32 | P.PN ---
Progress Note - Text Progress Note Date: 11/23/20 Chief Complaint: Short of breath History of presenting complaint: This is a pleasant 49-year-old patient who follows with Dr. Rex Miles. Patient otherwise in good health. Patient's older daughter has got COVID. One week patient started getting slowly progressively more short of breath. Cough. No sputum. Fever and chills. Some decrease in taste and smell. No diarrhea aching all over. Significant headache. Symptoms progressed decided to come in. Patient has tested positive for COVID. Today-eating some. Short of breath. Congestion the chest. On 8 L. Tired Review of systems: Was done for constitutional, cardiovascular, GI, pulmonary. relevant finding as above Active Medications Acetaminophen (Acetaminophen Tab 325 Mg Tab) 650 mg PO Q6HR PRN PRN Reason: Mild Pain or Fever > 100.5 Last Admin: 11/22/20 08:30 Dose: 650 mg Documented by: Albuterol Sulfate (Albuterol Hfa Inhaler) 2 puff INHALATION RT-QID PRN PRN Reason: Shortness Of Breath Or Wheezing Last Admin: 11/23/20 15:58 Dose: 2 puff Documented by: Ascorbic Acid (Ascorbic Acid 500 Mg Tab) 1,000 mg PO DAILY [facility] Last Admin: 11/23/20 09:15 Dose: 1,000 mg Documented by: Cholecalciferol (Cholecalciferol 25 Mcg (1000 Iu) Tablet) 25 mcg PO DAILY [facility] Last Admin: 11/23/20 09:14 Dose: 25 mcg Documented by: Dexamethasone Sodium Phosphate (Dexamethasone Sod Phosphate 10 Mg/Ml 1 Ml Vial) 6 mg IV DAILY [facility] Last Admin: 11/23/20 09:15 Dose: 6 mg Documented by: Enoxaparin Sodium (Enoxaparin 40 Mg/0.4 Ml Syringe) 40 mg SQ BID [facility] Last Admin: 11/23/20 20:58 Dose: 40 mg Documented by: Famotidine (Famotidine 20 Mg Tab) 20 mg PO BID [facility] Last Admin: 11/23/20 20:58 Dose: 20 mg Documented by: Remdesivir 100 mg/ Sodium (Chloride) 250 mls @ 250 mls/hr IVPB DAILY@1700 [facility] Stop: 11/26/20 17:59 Last Admin: 11/23/20 16:18 Dose: 250 mls/hr Documented by: Ibuprofen (Ibuprofen 400 Mg Tab) 400 mg PO Q6HR PRN PRN Reason: Mild Pain or Fever > 100.5 Naloxone HCl (Naloxone 0.4 Mg/Ml 1 Ml Vial) 0.2 mg IV Q2M PRN PRN Reason: Opioid Reversal Zinc Sulfate (Zinc Sulfate 220 Mg Cap) 220 mg PO DAILY [facility] Last Admin: 11/23/20 09:15 Dose: 220 mg Documented by: Past medical history to include: 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 . Family history: Reviewed, noncontributory to presentation Physical examination: VITAL SIGNS: 97.8, 81, 22, 124/81, 90% on 8 L GENERAL: reclining in bed, tired, short of breath NEUROLOGICAL: Cranial nerves grossly intact. Moving all 4 limbs PSYCH: Alert and oriented x3; mood and affect tiredl. Rest of the exam per pulmonary and nursing INVESTIGATIONS, reviewed in the clinical context: November 23: D-dimer 1.24 CRP 82.9 November 22: WBC 12.5 hemoglobin 15.6 Repeat Coronavirus [PCR]: November 21: Detected WBC 9.5 hemoglobin 15.5 platelets 240 lymphocytes 0.7 sodium 129 potassium 3.6 creatinine 1.08 CRP 223 pro-calcitonin 0.68 Coronavirus [PCR]-not detected by rapid testing d-dimer 0.91 EKG tracing personally reviewed by me-normal sinus rhythm nonspecific ST segment changes Chest x-ray film personally reviewed by me-bilateral infiltrates Assessment and plan: -COVID 19 pneumonia. dexamethasone Lovenox. Remdesivir: Slow to respond -Acute hypoxic respiratory failure from COVID 19 pneumonia. . On 8 L nasal cannula-slow to respond -Obesity BMI 34.7, weight loss measures as an outpatient. Follow with PCP -Sepsis from COVID 19 pneumonia. IV fluids Care was discussed with the patient. Encouraged to sit up in a chair and use incentive spirometry. Follow with consultants
--- NOTE | 2020-11-23 23:41 | PN ---
PROGRESS NOTE DATE OF SERVICE: 11/23/2020 REASON FOR FOLLOWUP: COVID-19 infection. INTERVAL HISTORY: Patient is currently afebrile. Patient is breathing more comfortably. Patient denies having any chest pain. He did have a cough, occasional sputum. No nausea. No vomiting. No abdominal pain. No diarrhea. EXAMINATION: Blood pressure 124/81. Pulse of 69, temperature 98, he is 90% on 8 L high-flow oxygen. General description is a middle-aged male up in the chair in no distress. Respiratory system: Unlabored breathing, decreased intensity of breath sounds. No wheeze. HEART: S1, S2. Regular rate and rhythm. Abdomen soft, no tenderness. LABS: Hemoglobin is 15.1, white count 12.5, creatinine 1.3. DIAGNOSTIC IMPRESSION AND PLAN: Patient with acute COVID-19 infection in this patient currently on Remdesivir, dexamethasone, Lovenox, Zinc to continue along with respiratory support and monitor clinical course closely. MMODL / IJN: [id number] /
[2020-11-24] MEDS: LACTATED RINGERS 1,000 ML IV SCH ×2 (03:43→11:21)
[2020-11-24] MEDS: ASCORBIC ACID 500 MG TAB PO SCH (07:06)
[2020-11-24] MEDS: ZINC SULFATE 220 MG CAP PO SCH (07:07)
[2020-11-24] MEDS: CHOLECALCIFEROL 25 MCG (1000 IU) TABLET PO SCH (07:07)
[2020-11-24] MEDS: ENOXAPARIN 40 MG/0.4 ML SYRINGE SQ SCH (07:07)
[2020-11-24] MEDS: DEXAMETHASONE SOD PHOSPHATE 10 MG/ML 1 ML VIAL IV SCH (07:07)
[2020-11-24] MEDS: FAMOTIDINE 20 MG TAB PO SCH ×2 (07:07→20:04)
[2020-11-24] MEDS: ALBUTEROL HFA INHALER INHALATION PRN ×4 (08:27→21:21)
[2020-11-24] MEDS ORDERED: ENOXAPARIN 80 MG/0.8 ML SYRINGE SQ STA (11:28)
--- NOTE | 2020-11-24 13:54 | P.PN ---
Subjective Progress Note Date: 11/24/20 This is a very pleasant 49-year-old gentleman who follows with Dr. Miles is his primary care provider. He has no significant past medical history. No home medications. He presented here to the emergency room early this morning with complaints of increasing shortness of breath, weakness, fatigue, chills, body aches muscle pain. He felt he had the woods virus. He does have a daughter who is currently positive. His symptoms have been going on for approximately 1 week now. Chest x-ray does show diffuse bilateral patchy opacities more so on the right lung. White count 9.5. Hemoglobin 15.5. Lymphocytes 0.7. Sodium 129. Potassium 3.6. Creatinine 1.08. LDH 2115. C-reactive protein 233. C penny virus not detected. Patient is seen today in consultation in the emergency room. He is currently sitting up on a stretcher. Awake and alert in no acute distress. He is requiring 6 L high flow nasal cannula to maintain O2 saturations in the 90s. He said T-max of 103.2. Currently afebrile. His received Decadron. Motrin, albuterol. Progress note dated 11/22/2020. This is a pleasant 49-year-old male who sees Dr. Rex Miles as his primary care provider. He has no significant past medical history. He takes no medications at home. He presented to the emergency room with complaints of increasing shortness of breath, he is, fatigue, chills, body aches, muscle pain. He thought he might have COVID 19. He was exposed to his daughter who tested positive. His symptoms have been present for about one week or so. Chest x-ray showed diffuse bilateral patchy infiltrates. COVID testing here was negative. Currently, he is on O2 high flow oxygen, 8 L, with a saturation of 90%. White count is 12.5, hemoglobin 15.6, hematocrit 46.4, platelet count 319,000. D- dimer was 0.91. Sodium 135, potassium 4.4, chlorides 95, CO2 30, anion gap 10, BUN 25, and creatinine 1.3. His repeat test was in fact positive. Progress note dated 11/23/2020. Pleasant 49-year-old male, who sees Dr. Rex Miles as his primary. He has no symptoms and past medical history, and takes no medications at home. He presented to the emergency department with complaints of increasing shortness of breath, fatigue, chills, body aches, and muscle pain. He thought he might have COVID 19. He was apparently exposed to his daughter who tested positive. His initial test was negative, but his symptoms, x-rays, and laboratory data all pointed towards coronavirus as the etiology of his symptoms. Sure enough, his repeat test was positive. D-dimer today was 1.24. C-reactive protein was 82.9. The patient is feeling maybe a bit better today than he did yesterday. Currently he is on 8 L high flow O2, with saturations of 93%. Chest x-ray showed stable patchy bilateral infiltrates. On today's evaluation of 11/24/2020, the patient is clinically getting better and he feels that he is less short of breath. Nevertheless, his oxidation slightly gotten worse and is up to 12 L about 2 by nasal cannula. Note that yesterday was only on 8 L. He has no fever. No nausea or vomiting. He has occ asional cough. On examination is crackles left more than right. Inflammatory markers has not been checked for a few days. He remains on Decadron 6 mg per 24 hours. He is also on therapeutic doses of Lovenox. His d-dimer is at 2.27. The chest x-ray showing pulmonary infiltrates, rather symmetrical with worse on the left. No other complaints otherwise for now. Objective - Vital Signs Vital signs: Vital Signs Temp 98.1 F 11/24/20 09:50 Pulse 77 11/24/20 09:50 Resp 20 11/24/20 09:50 BP 116/68 11/24/20 09:50 Pulse Ox 90 L 11/24/20 09:50 Intake & Output 11/23/20 11/24/20 11/24/20 18:59 06:59 18:59 Intake Total 600 450 Balance 600 450 Intake: Intake, IV Titration 450 Amount Lactated Ringers 1,000 ml 450 @ 75 mls/hr IV .[id number] [facility] Rx#:[id number] Oral 600 Other: # Voids 2 1 - Exam No acute distress, oriented 3. Currently, patient on 8 L high flow oxygen therapy. No conversational dyspnea or audible wheezing, or use of accessory muscles. HEENT examination is grossly unremarkable. Mucous membranes are moist. No oral lesions. Neck supple. Full range of motion. No adenopathy thyromegaly or neck vein distention. Cardiovascular examination reveals regular rhythm rate. S1-S2 normal. No S3 or S4. No discernible murmur noted. Heart rate is 72 bpm. Lungs reveal diffuse bilateral crackles and rhonchi. There are no wheezes. Breath sounds equal bilaterally. Exam is essentially unchanged. Abdomen soft bowel sounds are heard. No masses or tenderness. Extremities are intact. No cyanosis clubbing or edema. Skin is without rash or lesion. Neurologic examination is brief but nonfocal. - Labs CBC & Chem 7: 11/22/20 07:34 11/22/20 07:34 Labs: Abnormal Lab Results - Last 24 Hours (Table) 11/24/20 11/24/20 Range/Units 06:59 06:59 D-Dimer 2.27 H (<0.60) mg/L FEU C-Reactive Protein 44.2 H (<10.0) mg/L Microbiology - Last 24 Hours (Table) 11/21/20 20:14 Gram Stain - Final Sputum Sputum Culture - Final 11/21/20 16:20 Blood Culture - Preliminary Blood No Growth after 48 hours 11/21/20 16:00 Blood Culture - Preliminary Blood No Growth after 48 hours Assessment and Plan Plan: 1 Acute hypoxemic respiratory failure, secondary to COVID 19 pneumonia/pneumonitis, testing positive on his second test. The patient is currently on 12 L of oxygen by nasal cannula. He has crackles left more than right. Inflammatory markers need to be rechecked including LDH, CRP and d-dimer is and this will be checked for tomorrow. We'll also obtain a baseline pro- calcitonin level. The patient is on Decadron. 2 Elevated inflammatory markers secondary to COVID 19 pneumonia. 3 Fever, secondary to COVID 19. 4 Mild hyponatremia, resolved. Plan Continue the Decadron vitamin C, vitamin D3, zinc, Decadron, and Lovenox. The patient is also currently receiving REM per protocol and today is day #3.. We will continue to watch patient closely. Please The Lovenox Dose to 40 Mg Subcu Every 24 Hours Repeat chest x-ray in the morning Continue to follow
[2020-11-24] MEDS: REMDESIVIR 100 MG in SODIUM CHLORIDE 0.9% 250 ML IVPB SCH (16:28)
[2020-11-24] MEDS ORDERED: ENOXAPARIN 120 MG/0.8 ML SYRINGE SQ SCH (21:00)
--- NOTE | 2020-11-24 22:30 | P.PN ---
Progress Note - Text Progress Note Date: 11/24/20 Chief Complaint: Short of breath History of presenting complaint: This is a pleasant 49-year-old patient who follows with Dr. Rex Miles. Patient otherwise in good health. Patient's older daughter has got COVID. One week patient started getting slowly progressively more short of breath. Cough. No sputum. Fever and chills. Some decrease in taste and smell. No diarrhea aching all over. Significant headache. Symptoms progressed decided to come in. Patient has tested positive for COVID. Today-sitting up in a chair. More tired. More short of breath. Decreased oral intake. On 20 to cannula Review of systems: Was done for constitutional, cardiovascular, GI, pulmonary. relevant finding as above Active Medications Acetaminophen (Acetaminophen Tab 325 Mg Tab) 650 mg PO Q6HR PRN PRN Reason: Mild Pain or Fever > 100.5 Last Admin: 11/22/20 08:30 Dose: 650 mg Documented by: Albuterol Sulfate (Albuterol Hfa Inhaler) 2 puff INHALATION RT-QID PRN PRN Reason: Shortness Of Breath Or Wheezing Last Admin: 11/24/20 21:21 Dose: 2 puff Documented by: Ascorbic Acid (Ascorbic Acid 500 Mg Tab) 1,000 mg PO DAILY [facility] Last Admin: 11/24/20 07:06 Dose: 1,000 mg Documented by: Cholecalciferol (Cholecalciferol 25 Mcg (1000 Iu) Tablet) 25 mcg PO DAILY [facility] Last Admin: 11/24/20 07:07 Dose: 25 mcg Documented by: Dexamethasone Sodium Phosphate (Dexamethasone Sod Phosphate 10 Mg/Ml 1 Ml Vial) 6 mg IV DAILY [facility] Last Admin: 11/24/20 07:07 Dose: 6 mg Documented by: Enoxaparin Sodium (Enoxaparin 40 Mg/0.4 Ml Syringe) 40 mg SQ DAILY [facility] Famotidine (Famotidine 20 Mg Tab) 20 mg PO BID [facility] Last Admin: 11/24/20 20:04 Dose: 20 mg Documented by: Remdesivir 100 mg/ Sodium (Chloride) 250 mls @ 250 mls/hr IVPB DAILY@1700 [facility] Stop: 11/26/20 17:59 Last Admin: 11/24/20 16:28 Dose: 250 mls/hr Documented by: Lactated Ringer's (Lactated Ringers) 1,000 mls @ 75 mls/hr IV .[id number] [facility] Last Admin: 11/24/20 11:21 Dose: 75 mls/hr Documented by: Ibuprofen (Ibuprofen 400 Mg Tab) 400 mg PO Q6HR PRN PRN Reason: Mild Pain or Fever > 100.5 Naloxone HCl (Naloxone 0.4 Mg/Ml 1 Ml Vial) 0.2 mg IV Q2M PRN PRN Reason: Opioid Reversal Zinc Sulfate (Zinc Sulfate 220 Mg Cap) 220 mg PO DAILY [facility] Last Admin: 11/24/20 07:07 Dose: 220 mg Documented by: Past medical history to include: 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 . Family history: Reviewed, noncontributory to presentation Physical examination: VITAL SIGNS: 98.1, 77, 20, 116/68, 80% on 2 L GENERAL: Sitting up in a chair tired, more short of breath NEUROLOGICAL: Cranial nerves grossly intact. Moving all 4 limbs PSYCH: Alert and oriented x3; mood and affect tired. Rest of the exam per pulmonary and nursing INVESTIGATIONS, reviewed in the clinical context: November 24: D-dimer 2.27 CRP 44.2 November 23: D-dimer 1.24 CRP 82.9 November 22: WBC 12.5 hemoglobin 15.6 Repeat Coronavirus [PCR]: November 21: Detected WBC 9.5 hemoglobin 15.5 platelets 240 lymphocytes 0.7 sodium 129 potassium 3.6 creatinine 1.08 CRP 223 pro-calcitonin 0.68 Coronavirus [PCR]-not detected by rapid testing d-dimer 0.91 EKG tracing personally reviewed by me-normal sinus rhythm nonspecific ST segment changes Chest x-ray film personally reviewed by me-bilateral infiltrates Assessment and plan: -COVID 19 pneumonia. dexamethasone Lovenox. Remdesivir: Slow to respond -Acute hypoxic respiratory failure from COVID 19 pneumonia. . On 12 L nasal worsening -Obesity BMI 34.7, weight loss measures as an outpatient. Follow with PCP -Sepsis from COVID 19 pneumonia. IV fluids Care was discussed with the patient. Follow with pulmonary and ID
--- NOTE | 2020-11-25 01:09 | PN ---
PROGRESS NOTE DATE OF SERVICE: 11/24/2020 REASON FOR FOLLOWUP: COVID-19 infection. INTERVAL HISTORY: Patient is currently afebrile. He is breathing slightly comfortably. Denies having any chest pain. Did have a cough with occasional sputum. No nausea, vomiting. No abdominal pain. No diarrhea. PHYSICAL EXAMINATION: Blood pressure 112/74 with a pulse of 74, temperature 98.6. He is 90% on 2 L high-flow oxygen. General description is a middle-aged male up in the chair in no distress. Respiratory system: Unlabored breathing, decreased intensity in breath sounds. No wheeze. Heart S1, S2. Regular rate and rhythm. ABDOMEN: Soft, no tenderness. LABS: Hemoglobin 15.2, white count 12.50, BUN of 25, creatinine is 1.3. DIAGNOSTIC IMPRESSION/PLAN: Patient with acute respiratory failure secondary to COVID-19 infection in this patient currently on Remdesivir, dexamethasone, Lovenox, zinc to continue while monitoring clinical course closely. Continue supportive care. MMODL / IJN: [id number] /
[2020-11-25] MEDS: ACETAMINOPHEN TAB 325 MG TAB PO PRN (02:55)
[2020-11-25] MEDS: LACTATED RINGERS 1,000 ML IV SCH ×2 (03:22→15:42)
[2020-11-25] MEDS: ENOXAPARIN 40 MG/0.4 ML SYRINGE SQ SCH (07:09)
[2020-11-25] MEDS: ZINC SULFATE 220 MG CAP PO SCH (07:09)
[2020-11-25] MEDS: FAMOTIDINE 20 MG TAB PO SCH ×2 (07:09→20:07)
[2020-11-25] MEDS: ASCORBIC ACID 500 MG TAB PO SCH (07:09)
[2020-11-25] MEDS: DEXAMETHASONE SOD PHOSPHATE 10 MG/ML 1 ML VIAL IV SCH (07:09)
[2020-11-25] MEDS: CHOLECALCIFEROL 25 MCG (1000 IU) TABLET PO SCH (07:09)
[2020-11-25] MEDS: ALBUTEROL HFA INHALER INHALATION PRN ×2 (09:01→11:49)
[2020-11-25 11:51] LABS: Basophils # (A) 0.04 X 10*3/uL (0.00-0.10); Basophils % (A) 0.4 %; Eosinophils # (A) 0.08 X 10*3/uL (0.04-0.35); Eosinophils % (A) 0.8 %; HCT 43.9 % (39.6-50.0); HGB 14.1 g/dL (13.0-17.0); Lymphocytes # (A) 1.63 X 10*3/uL (0.90-5.00); Lymphocytes % (A) 16.2 %; MCH 28.8 pg (27.0-32.0); MCHC 32.1 g/dL (32.0-37.0); MCV 89.8 fL (80.0-97.0); Mean Platelet Volume 9.6 fL (9.5-12.2); Neutrophils # (A) 7.42 X 10*3/uL (1.80-7.70); Neutrophils % (A) 73.9 %; Platelet Count 414 X 10*3/uL (140-440); RBC 4.89 X 10*6/uL (4.40-5.60); RDW 13.2 % (11.5-14.5); WBC 10.04 X 10*3/uL (4.50-10.00)
[2020-11-25 12:15] LABS: African American GFR (CKD) 123.3 (60.0-200.0); Albumin 3.3 g/dL (3.80-4.90); Albumin/Globulin Ratio 1.74 (1.60-3.17); Anion Gap 7.5 mmol/L (4.00-12.00); BUN/Creat Ratio 22.5 Ratio (12.00-20.00); Calcium 8.3 mg/dL (8.7-10.3); Carbon Dioxide 29.5 mmol/L (21.6-31.8); Globulin 1.9 g/dL (1.6-3.3); Non-African American GFR(CKD) 106.4 (60.0-200.0); Potassium 3.9 mmol/L (3.5-5.5); Total Bilirubin 0.9 mg/dL (0.3-1.2); Total Protein 5.2 g/dL (6.2-8.2)
--- NOTE | 2020-11-25 13:41 | P.PN ---
Subjective Progress Note Date: 11/25/20 This is a very pleasant 49-year-old gentleman who follows with Dr. Miles is his primary care provider. He has no significant past medical history. No home medications. He presented here to the emergency room early this morning with complaints of increasing shortness of breath, weakness, fatigue, chills, body aches muscle pain. He felt he had the woods virus. He does have a daughter who is currently positive. His symptoms have been going on for approximately 1 week now. Chest x-ray does show diffuse bilateral patchy opacities more so on the right lung. White count 9.5. Hemoglobin 15.5. Lymphocytes 0.7. Sodium 129. Potassium 3.6. Creatinine 1.08. LDH 2115. C-reactive protein 233. C penny virus not detected. Patient is seen today in consultation in the emergency room. He is currently sitting up on a stretcher. Awake and alert in no acute distress. He is requiring 6 L high flow nasal cannula to maintain O2 saturations in the 90s. He said T-max of 103.2. Currently afebrile. His received Decadron. Motrin, albuterol. Progress note dated 11/22/2020. This is a pleasant 49-year-old male who sees Dr. Rex Miles as his primary care provider. He has no significant past medical history. He takes no medications at home. He presented to the emergency room with complaints of increasing shortness of breath, he is, fatigue, chills, body aches, muscle pain. He thought he might have COVID 19. He was exposed to his daughter who tested positive. His symptoms have been present for about one week or so. Chest x-ray showed diffuse bilateral patchy infiltrates. COVID testing here was negative. Currently, he is on O2 high flow oxygen, 8 L, with a saturation of 90%. White count is 12.5, hemoglobin 15.6, hematocrit 46.4, platelet count 319,000. D- dimer was 0.91. Sodium 135, potassium 4.4, chlorides 95, CO2 30, anion gap 10, BUN 25, and creatinine 1.3. His repeat test was in fact positive. Progress note dated 11/23/2020. Pleasant 49-year-old male, who sees Dr. Rex Miles as his primary. He has no symptoms and past medical history, and takes no medications at home. He presented to the emergency department with complaints of increasing shortness of breath, fatigue, chills, body aches, and muscle pain. He thought he might have COVID 19. He was apparently exposed to his daughter who tested positive. His initial test was negative, but his symptoms, x-rays, and laboratory data all pointed towards coronavirus as the etiology of his symptoms. Sure enough, his repeat test was positive. D-dimer today was 1.24. C-reactive protein was 82.9. The patient is feeling maybe a bit better today than he did yesterday. Currently he is on 8 L high flow O2, with saturations of 93%. Chest x-ray showed stable patchy bilateral infiltrates. On today's evaluation of 11/24/2020, the patient is clinically getting better and he feels that he is less short of breath. Nevertheless, his oxidation slightly gotten worse and is up to 12 L about 2 by nasal cannula. Note that yesterday was only on 8 L. He has no fever. No nausea or vomiting. He has occ asional cough. On examination is crackles left more than right. Inflammatory markers has not been checked for a few days. He remains on Decadron 6 mg per 24 hours. He is also on therapeutic doses of Lovenox. His d-dimer is at 2.27. The chest x-ray showing pulmonary infiltrates, rather symmetrical with worse on the left. No other complaints otherwise for now. 11/25/2020 I'm seeing the patient for a follow-up. Note that the patient was oxygenation had gotten worse yesterday and was up to 12 L of oxygen by nasal cannula. On today's evaluation he is still on 12 L and he remains on Decadron 6 mg every 24 hours and he is also on Lovenox. He is also receiving Sebastian and he is on day #4. No improvement in his oxygenation since yesterday. On his blood work, the patient has a CRP of 44.2 and this was done from yesterday. LDH has not been measured. This history monitored. Renal function stable. Electrodes are stable. D-dimer is at 2.27 from yesterday. He is having episodic cough. He has shortness of breath with activity. Quite comfortable at rest. No nausea. No vomiting. No abdominal pain. No chest pain. Objective - Vital Signs Vital signs: Vital Signs Temp 99.2 F 11/25/20 09:32 Pulse 80 11/25/20 09:32 Resp 18 11/25/20 09:32 BP 106/70 11/25/20 09:32 Pulse Ox 91 L 11/25/20 09:32 Intake & Output 11/24/20 11/25/20 11/25/20 18:59 06:59 18:59 Other: Voiding Method Toilet # Voids 3 2 - Exam No acute distress, oriented 3. Currently, patient on 12 L high flow oxygen therapy. No conversational dyspnea or audible wheezing, or use of accessory muscles. HEENT examination is grossly unremarkable. Mucous membranes are moist. No oral lesions. Neck supple. Full range of motion. No adenopathy thyromegaly or neck vein distention. Cardiovascular examination reveals regular rhythm rate. S1-S2 normal. No S3 or S4. No discernible murmur noted. Heart rate is 72 bpm. Lungs reveal diffuse bilateral crackles and rhonchi. There are no wheezes. Breath sounds equal bilaterally. Exam is essentially unchanged. Abdomen soft bowel sounds are heard. No masses or tenderness. Extremities are intact. No cyanosis clubbing or edema. Skin is without rash or lesion. Neurologic examination is brief but nonfocal. - Labs CBC & Chem 7: 11/25/20 06:53 11/25/20 06:53 Labs: Abnormal Lab Results - Last 24 Hours (Table) 11/25/20 11/25/20 Range/Units 06:53 06:53 WBC 10.04 H (4.50-10.00) X 10*3/uL Immature Gran # 0.27 H (0.00-0.04) X 10*3/uL BUN/Creatinine Ratio 22.50 H (12.00-20.00) Ratio Calcium 8.3 L (8.7-10.3) mg/dL AST 47 H (14-35) U/L ALT 52 H (10-49) U/L Total Protein 5.2 L (6.2-8.2) g/dL Albumin 3.30 L (3.80-4.90) g/dL Microbiology - Last 24 Hours (Table) 11/21/20 16:20 Blood Culture - Preliminary Blood No Growth after 72 hours 11/21/20 16:00 Blood Culture - Preliminary Blood No Growth after 72 hours Assessment and Plan Plan: 1 Acute hypoxemic respiratory failure, secondary to COVID 19 pneumonia/pneumonitis, testing positive on his second test. The patient is currently on 12 L of oxygen by nasal cannula. He has crackles left more than right. Inflammatory markers need to be rechecked including LDH, CRP and d-dimer is pending from today.. We'll also obtain a baseline pro-calcitonin is pending. The patient is on Decadron. There is also completing REM is on day #4 2 Elevated inflammatory markers secondary to COVID 19 pneumonia. 3 Fever, secondary to COVID 19. 4 Mild hyponatremia, resolved. Plan Continue the Decadron vitamin C, vitamin D3, zinc, Decadron, and Lovenox. The patient is also currently receiving REM per protocol and today is day #4 We will continue to watch patient closely. Lovenox Dose to 40 Mg Subcu Every 24 Hours Repeat chest x-ray in the morning Continue to follow
[2020-11-25] MEDS: REMDESIVIR 100 MG in SODIUM CHLORIDE 0.9% 250 ML IVPB SCH (15:42)
--- NOTE | 2020-11-26 01:18 | P.PN ---
Progress Note - Text Progress Note Date: 11/25/20 Chief Complaint: Short of breath History of presenting complaint: This is a pleasant 49-year-old patient who follows with Dr. Rex Miles. Patient otherwise in good health. Patient's older daughter has got COVID. One week patient started getting slowly progressively more short of breath. Cough. No sputum. Fever and chills. Some decrease in taste and smell. No diarrhea aching all over. Significant headache. Symptoms progressed decided to come in. Patient has tested positive for COVID. On Remdesivir, Lovenox, Decadron Today-P is a bit better. Oral intake is better. Up in a chair. On 8 L of nasal cannula. Review of systems: Was done for constitutional, cardiovascular, GI, pulmonary. relevant finding as above Active Medications Acetaminophen (Acetaminophen Tab 325 Mg Tab) 650 mg PO Q6HR PRN PRN Reason: Mild Pain or Fever > 100.5 Last Admin: 11/25/20 02:55 Dose: 650 mg Documented by: Albuterol Sulfate (Albuterol Hfa Inhaler) 2 puff INHALATION RT-QID PRN PRN Reason: Shortness Of Breath Or Wheezing Last Admin: 11/25/20 11:49 Dose: 2 puff Documented by: Ascorbic Acid (Ascorbic Acid 500 Mg Tab) 1,000 mg PO DAILY [facility] Last Admin: 11/25/20 07:09 Dose: 1,000 mg Documented by: Cholecalciferol (Cholecalciferol 25 Mcg (1000 Iu) Tablet) 25 mcg PO DAILY [facility] Last Admin: 11/25/20 07:09 Dose: 25 mcg Documented by: Dexamethasone Sodium Phosphate (Dexamethasone Sod Phosphate 10 Mg/Ml 1 Ml Vial) 6 mg IV DAILY [facility] Last Admin: 11/25/20 07:09 Dose: 6 mg Documented by: Enoxaparin Sodium (Enoxaparin 40 Mg/0.4 Ml Syringe) 40 mg SQ DAILY [facility] Last Admin: 11/25/20 07:09 Dose: 40 mg Documented by: Famotidine (Famotidine 20 Mg Tab) 20 mg PO BID [facility] Last Admin: 11/25/20 20:07 Dose: 20 mg Documented by: Remdesivir 100 mg/ Sodium (Chloride) 250 mls @ 250 mls/hr IVPB DAILY@1700 [facility] Stop: 11/26/20 17:59 Last Admin: 11/25/20 15:42 Dose: 250 mls/hr Documented by: Lactated Ringer's (Lactated Ringers) 1,000 mls @ 75 mls/hr IV .[id number] [facility] Last Admin: 11/25/20 15:42 Dose: 75 mls/hr Documented by: Ibuprofen (Ibuprofen 400 Mg Tab) 400 mg PO Q6HR PRN PRN Reason: Mild Pain or Fever > 100.5 Naloxone HCl (Naloxone 0.4 Mg/Ml 1 Ml Vial) 0.2 mg IV Q2M PRN PRN Reason: Opioid Reversal Zinc Sulfate (Zinc Sulfate 220 Mg Cap) 220 mg PO DAILY [facility] Last Admin: 11/25/20 07:09 Dose: 220 mg Documented by: Past medical history to include: 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 . Family history: Reviewed, noncontributory to presentation Physical examination: VITAL SIGNS: 98.3, 78, 19, 119 076, 94% on 8 L GENERAL: Sitting up in a chair tired, short of breath NEUROLOGICAL: Cranial nerves grossly intact. Moving all 4 limbs PSYCH: Alert and oriented x3; mood and affect tired. Rest of the exam per pulmonary and nursing INVESTIGATIONS, reviewed in the clinical context: November 2012: WBC 10.04 hemoglobin 14.1 potassium 3.9 November 24: D-dimer 2.27 CRP 44.2 November 23: D-dimer 1.24 CRP 82.9 November 22: WBC 12.5 hemoglobin 15.6 Repeat Coronavirus [PCR]: November 21: Detected WBC 9.5 hemoglobin 15.5 platelets 240 lymphocytes 0.7 sodium 129 potassium 3.6 creatinine 1.08 CRP 223 pro-calcitonin 0.68 Coronavirus [PCR]-not detected by rapid testing d-dimer 0.91 EKG tracing personally reviewed by me-normal sinus rhythm nonspecific ST segment changes Chest x-ray film personally reviewed by me-bilateral infiltrates Assessment and plan: -COVID 19 pneumonia. dexamethasone Lovenox. Remdesivir: Slow to respond -Acute hypoxic respiratory failure from COVID 19 pneumonia. . On 8 L nasal: Slow to respond -Obesity BMI 34.7, weight loss measures as an outpatient. Follow with PCP -Sepsis from COVID 19 pneumonia. IV fluids -Hypoalbuminemia: Reactive Care was discussed with the patient. Encouraged to take a few steps in the room.
--- NOTE | 2020-11-26 01:30 | PN ---
PROGRESS NOTE DATE OF SERVICE: 11/25/2020 REASON FOR FOLLOWUP: COVID-19 pneumonia. INTERVAL HISTORY: Patient is currently afebrile. He is breathing slightly comfortably. Denies having any chest pain or shortness of breath. He did have a cough, not bringing up any sputum. No nausea, no vomiting. No abdominal pain or diarrhea. PHYSICAL EXAMINATION: Blood pressure is 130/88 with a pulse of 72, temperature 98.8. He is 91% on high-flow oxygen. General description is a middle-aged male up in the chair in no distress. Respiratory system: Unlabored breathing, decreased intensity of breath sounds. No wheeze. HEART: S1, S2. Regular rate and rhythm. ABDOMEN: Soft, no tenderness. LABS: Hemoglobin is 14.1, white count 10.1, BUN of 18, creatinine 0.8. DIAGNOSTIC IMPRESSION AND PLAN: Patient with acute COVID-19 pneumonia in this patient who did have a clinical response and is currently covered with Remdesivir, Dexamethasone, Lovenox, zinc, ascorbic acid to continue and monitor clinical course closely. MMODL / IJN: [id number] /
[2020-11-26] MEDS: LACTATED RINGERS 1,000 ML IV SCH ×2 (05:10→18:14)
[2020-11-26] MEDS: ASCORBIC ACID 500 MG TAB PO SCH (07:10)
[2020-11-26] MEDS: DEXAMETHASONE SOD PHOSPHATE 10 MG/ML 1 ML VIAL IV SCH (07:11)
[2020-11-26] MEDS: ENOXAPARIN 40 MG/0.4 ML SYRINGE SQ SCH (07:11)
[2020-11-26] MEDS: ZINC SULFATE 220 MG CAP PO SCH (07:11)
[2020-11-26] MEDS: FAMOTIDINE 20 MG TAB PO SCH ×2 (07:11→21:44)
[2020-11-26] MEDS: CHOLECALCIFEROL 25 MCG (1000 IU) TABLET PO SCH (07:11)
--- NOTE | 2020-11-26 08:11 | XR ---
EXAMINATION TYPE: XR chest 1V portable DATE OF EXAM: 11/26/2020 COMPARISON: 11/23/2020 HISTORY: Covid pneumonia TECHNIQUE: Single frontal view of the chest is obtained. FINDINGS: Patchy infiltrates throughout both lung caba persist with slight progression noted at the right cezar g base. Continued follow-up is advised. The cardiac silhouette size is within normal limits. The osseous structures are intact. IMPRESSION: 1. Patchy infiltrates throughout both lung caba persist with slight progression noted at the right lung base. Continued follow-up is advised.
[2020-11-26] MEDS: ALBUTEROL HFA INHALER INHALATION PRN ×4 (09:13→21:28)
[2020-11-26] MEDS ORDERED: ENOXAPARIN 30 MG/0.3 ML SYRINGE SQ STA (09:54)
[2020-11-26 10:38] LABS: C Reactive Protein 11.9 mg/dL (0.0-0.8)
--- NOTE | 2020-11-26 16:00 | P.PN ---
Subjective Progress Note Date: 11/26/20 This is a very pleasant 49-year-old gentleman who follows with Dr. Miles is his primary care provider. He has no significant past medical history. No home medications. He presented here to the emergency room early this morning with complaints of increasing shortness of breath, weakness, fatigue, chills, body aches muscle pain. He felt he had the woods virus. He does have a daughter who is currently positive. His symptoms have been going on for approximately 1 week now. Chest x-ray does show diffuse bilateral patchy opacities more so on the right lung. White count 9.5. Hemoglobin 15.5. Lymphocytes 0.7. Sodium 129. Potassium 3.6. Creatinine 1.08. LDH 2115. C-reactive protein 233. C penny virus not detected. Patient is seen today in consultation in the emergency room. He is currently sitting up on a stretcher. Awake and alert in no acute distress. He is requiring 6 L high flow nasal cannula to maintain O2 saturations in the 90s. He said T-max of 103.2. Currently afebrile. His received Decadron. Motrin, albuterol. Progress note dated 11/22/2020. This is a pleasant 49-year-old male who sees Dr. Rex Miles as his primary care provider. He has no significant past medical history. He takes no medications at home. He presented to the emergency room with complaints of increasing shortness of breath, he is, fatigue, chills, body aches, muscle pain. He thought he might have COVID 19. He was exposed to his daughter who tested positive. His symptoms have been present for about one week or so. Chest x-ray showed diffuse bilateral patchy infiltrates. COVID testing here was negative. Currently, he is on O2 high flow oxygen, 8 L, with a saturation of 90%. White count is 12.5, hemoglobin 15.6, hematocrit 46.4, platelet count 319,000. D- dimer was 0.91. Sodium 135, potassium 4.4, chlorides 95, CO2 30, anion gap 10, BUN 25, and creatinine 1.3. His repeat test was in fact positive. Progress note dated 11/23/2020. Pleasant 49-year-old male, who sees Dr. Rex Miles as his primary. He has no symptoms and past medical history, and takes no medications at home. He presented to the emergency department with complaints of increasing shortness of breath, fatigue, chills, body aches, and muscle pain. He thought he might have COVID 19. He was apparently exposed to his daughter who tested positive. His initial test was negative, but his symptoms, x-rays, and laboratory data all pointed towards coronavirus as the etiology of his symptoms. Sure enough, his repeat test was positive. D-dimer today was 1.24. C-reactive protein was 82.9. The patient is feeling maybe a bit better today than he did yesterday. Currently he is on 8 L high flow O2, with saturations of 93%. Chest x-ray showed stable patchy bilateral infiltrates. On today's evaluation of 11/24/2020, the patient is clinically getting better and he feels that he is less short of breath. Nevertheless, his oxidation slightly gotten worse and is up to 12 L about 2 by nasal cannula. Note that yesterday was only on 8 L. He has no fever. No nausea or vomiting. He has occ asional cough. On examination is crackles left more than right. Inflammatory markers has not been checked for a few days. He remains on Decadron 6 mg per 24 hours. He is also on therapeutic doses of Lovenox. His d-dimer is at 2.27. The chest x-ray showing pulmonary infiltrates, rather symmetrical with worse on the left. No other complaints otherwise for now. 11/25/2020 I'm seeing the patient for a follow-up. Note that the patient was oxygenation had gotten worse yesterday and was up to 12 L of oxygen by nasal cannula. On today's evaluation he is still on 12 L and he remains on Decadron 6 mg every 24 hours and he is also on Lovenox. He is also receiving Sebastina and he is on day #4. No improvement in his oxygenation since yesterday. On his blood work, the patient has a CRP of 44.2 and this was done from yesterday. LDH has not been measured. This history monitored. Renal function stable. Electrodes are stable. D-dimer is at 2.27 from yesterday. He is having episodic cough. He has shortness of breath with activity. Quite comfortable at rest. No nausea. No vomiting. No abdominal pain. No chest pain. On 11/26/2020, the patient is being seen for a follow-up. The patient is currently down to 8 L of oxygen by nasal cannula and pulse is around 92%. He is sitting up on a chair. Is a bit anxious and is frustrated on the slow course of his improvement. I answered all of his questions to satisfaction. In fact, I will today's condition is stable and there has been some mild improvement in his oxygenation and oxygen requirements as the patient is currently down to 8 L flow. No chest pain. No nausea. No vomiting. No diarrhea. No abdominal pain. No other new complaints otherwise for now. In terms of his blood work, the d-dimer is up to 11, LDH level is down to 584 and the CRP level is down to 11.9. The patient is doing well otherwise. Has no specific complaints. He is on day 5 of . Objective - Vital Signs Vital signs: Vital Signs Temp 98.2 F 11/26/20 14:38 Pulse 80 11/26/20 14:38 Resp 16 11/26/20 14:38 BP 120/82 11/26/20 14:38 Pulse Ox 92 L 11/26/20 14:38 Intake & Output 11/25/20 11/26/20 11/26/20 18:59 06:59 18:59 Other: Voiding Method Toilet # Voids 3 1 - Exam No acute distress, oriented 3. Currently, patient on 8 L high flow oxygen therapy. No conversational dyspnea or audible wheezing, or use of accessory muscles. HEENT examination is grossly unremarkable. Mucous membranes are moist. No oral lesions. Neck supple. Full range of motion. No adenopathy thyromegaly or neck vein distention. Cardiovascular examination reveals regular rhythm rate. S1-S2 normal. No S3 or S4. No discernible murmur noted. Heart rate is 72 bpm. Lungs reveal diffuse bilateral crackles and rhonchi. There are no wheezes. Breath sounds equal bilaterally. Exam is essentially unchanged. Abdomen soft bowel sounds are heard. No masses or tenderness. Extremities are intact. No cyanosis clubbing or edema. Skin is without rash or lesion. Neurologic examination is brief but nonfocal. - Labs CBC & Chem 7: 11/25/20 06:53 11/25/20 06:53 Labs: Abnormal Lab Results - Last 24 Hours (Table) 11/26/20 11/26/20 Range/Units 05:50 05:50 D-Dimer 11.02 H (<0.60) mg/L FEU Lactate Dehydrogenase 584 H (120-246) U/L C-Reactive Protein 11.9 H (0.0-0.8) mg/dL Microbiology - Last 24 Hours (Table) 11/21/20 16:20 Blood Culture - Preliminary Blood No Growth after 96 hours 11/21/20 16:00 Blood Culture - Preliminary Blood No Growth after 96 hours Assessment and Plan Plan: 1 Acute hypoxemic respiratory failure, secondary to COVID 19 pneumonia/pneumonitis, testing positive on his second test. The patient is currently on 8 L of oxygen by nasal cannula. He has crackles left more than right. Inflammatory markers need to be rechecked including LDH, CRP are declining and the d-dimer is up to 11.02... We'll also obtain a baseline pro- calcitonin is pending. The patient is on Decadron. There is also completing REM is on day #5 2 Elevated inflammatory markers secondary to COVID 19 pneumonia. 3 Fever, secondary to COVID 19. 4 Mild hyponatremia, resolved. Plan Continue the Decadron vitamin C, vitamin D3, zinc, Decadron, and Lovenox. I'm going to adjust the Lovenox dose based on the rise in d-dimer is. We'll adjust the dose to 60 mg subcutaneous twice a day The patient is also currently receiving REM per protocol and today is day #5 We will continue to watch patient closely. the patient is showing slow response. He has been cut down to 8 L of O2 nasal cannula. D-dimer is on the rise.adjustments on the Lovenox dose was done. Continue to follow
[2020-11-26] MEDS: REMDESIVIR 100 MG in SODIUM CHLORIDE 0.9% 250 ML IVPB SCH (18:14)
[2020-11-26] MEDS: ENOXAPARIN 60 MG/0.6 ML SYRINGE SQ SCH (21:44)
--- NOTE | 2020-11-27 00:40 | P.PN ---
Progress Note - Text Progress Note Date: 11/27/20 Chief Complaint: Short of breath History of presenting complaint: This is a pleasant 49-year-old patient who follows with Dr. Rex Miles. Patient otherwise in good health. Patient's older daughter has got COVID. One week patient started getting slowly progressively more short of breath. Cough. No sputum. Fever and chills. Some decrease in taste and smell. No diarrhea aching all over. Significant headache. Symptoms progressed decided to come in. Patient has tested positive for COVID. On Remdesivir, Lovenox, Decadron Today-is a bit tired today. A bit short of breath. Eating some. Sitting up in a chair. Remains on 8 L of nasal cannula Review of systems: Was done for constitutional, cardiovascular, GI, pulmonary. relevant finding as above Active Medications Acetaminophen (Acetaminophen Tab 325 Mg Tab) 650 mg PO Q6HR PRN PRN Reason: Mild Pain or Fever > 100.5 Last Admin: 11/25/20 02:55 Dose: 650 mg Documented by: Albuterol Sulfate (Albuterol Hfa Inhaler) 2 puff INHALATION RT-QID PRN PRN Reason: Shortness Of Breath Or Wheezing Last Admin: 11/26/20 21:28 Dose: 2 puff Documented by: Ascorbic Acid (Ascorbic Acid 500 Mg Tab) 1,000 mg PO DAILY [facility] Last Admin: 11/26/20 07:10 Dose: 1,000 mg Documented by: Cholecalciferol (Cholecalciferol 25 Mcg (1000 Iu) Tablet) 25 mcg PO DAILY [facility] Last Admin: 11/26/20 07:11 Dose: 25 mcg Documented by: Dexamethasone Sodium Phosphate (Dexamethasone Sod Phosphate 10 Mg/Ml 1 Ml Vial) 6 mg IV DAILY [facility] Last Admin: 11/26/20 07:11 Dose: 6 mg Documented by: Enoxaparin Sodium (Enoxaparin 60 Mg/0.6 Ml Syringe) 60 mg SQ BID [facility] Last Admin: 11/26/20 21:44 Dose: 60 mg Documented by: Famotidine (Famotidine 20 Mg Tab) 20 mg PO BID [facility] Last Admin: 11/26/20 21:44 Dose: 20 mg Documented by: Lactated Ringer's (Lactated Ringers) 1,000 mls @ 75 mls/hr IV .[id number] [facility] Last Admin: 11/26/20 18:14 Dose: 75 mls/hr Documented by: Ibuprofen (Ibuprofen 400 Mg Tab) 400 mg PO Q6HR PRN PRN Reason: Mild Pain or Fever > 100.5 Naloxone HCl (Naloxone 0.4 Mg/Ml 1 Ml Vial) 0.2 mg IV Q2M PRN PRN Reason: Opioid Reversal Zinc Sulfate (Zinc Sulfate 220 Mg Cap) 220 mg PO DAILY [facility] Last Admin: 11/26/20 07:11 Dose: 220 mg Documented by: Past medical history to include: 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 . Family history: Reviewed, noncontributory to presentation Physical examination: VITAL SIGNS: 98.2, 80, 16, 120/82, 92% on 8 L GENERAL: Sitting up in a chair tired, short of breath NEUROLOGICAL: Cranial nerves grossly intact. Moving all 4 limbs PSYCH: Alert and oriented x3; mood and affect tired. Rest of the exam per pulmonary and nursing INVESTIGATIONS, reviewed in the clinical context: November 26: D-dimer 11.02 CRP 11.9 November 25: WBC 10.04 hemoglobin 14.1 potassium 3.9 November 24: D-dimer 2.27 CRP 44.2 November 23: D-dimer 1.24 CRP 82.9 November 22: WBC 12.5 hemoglobin 15.6 Repeat Coronavirus [PCR]: November 21: Detected WBC 9.5 hemoglobin 15.5 platelets 240 lymphocytes 0.7 sodium 129 potassium 3.6 creatinine 1.08 CRP 223 pro-calcitonin 0.68 Coronavirus [PCR]-not detected by rapid testing d-dimer 0.91 EKG tracing personally reviewed by me-normal sinus rhythm nonspecific ST segment changes Chest x-ray film personally reviewed by me-bilateral infiltrates Assessment and plan: -COVID 19 pneumonia. dexamethasone Lovenox. Remdesivir: Slow to respond -Acute hypoxic respiratory failure from COVID 19 pneumonia. . On 8 L nasal: Slow to respond -Obesity BMI 34.7, weight loss measures as an outpatient. Follow with PCP -Sepsis from COVID 19 pneumonia. IV fluids -Hypoalbuminemia: Reactive Care was discussed with the patient. Continue to use incentive spirometry. Continue with Decadron Lovenox.
--- NOTE | 2020-11-27 01:10 | PN ---
PROGRESS NOTE DATE OF SERVICE: 11/26/2020 REASON FOR FOLLOWUP: COVID-19 pneumonia. INTERVAL HISTORY: The patient is currently afebrile. Mentioned not feeling as good today. Denies any worsening shortness of breath or chest pain. Continues to have a cough and minimal sputum. No abdominal pain. No diarrhea. PHYSICAL EXAMINATION: Blood pressure 119/80 with a pulse of 76, temperature 98.9. He is 90% on 8 L high-flow oxygen. General description is a middle-aged male up in the chair in no distress. Respiratory system: Unlabored breathing, decreased intensity of breath sounds. No wheeze. HEART: S1, S2. Regular rate and rhythm. Abdomen soft, no tenderness. LABS: Hemoglobin is 14.3, white count 10.04. BUN of 18, creatinine 0.8. DIAGNOSTIC IMPRESSION AND PLAN: Patient with acute COVID-19 infection in this patient who completed his Remdesivir therapy and is currently on Lovenox, dexamethasone, zinc and ascorbic acid to continue along with respiratory support and monitor clinical course closely. MMODL / IJN: [id number] /
[2020-11-27] MEDS: LACTATED RINGERS 1,000 ML IV SCH ×2 (05:57→21:38)
[2020-11-27 09:09] LABS: African American GFR (CKD) >90 (>60 ml/min/1.73 sqM); Anion Gap 5 mmol/L; Blood Urea Nitrogen 15 mg/dL (9-20); Calcium 8.4 mg/dL (8.4-10.2); Carbon Dioxide 31 mmol/L (22-30); Chloride 102 mmol/L (98-107); Glucose 98 mg/dL (74-99); Non-African American GFR(CKD) >90 (>60 ml/min/1.73 sqM); Potassium 4.2 mmol/L (3.5-5.1); Sodium 138 mmol/L (137-145)
[2020-11-27] MEDS: DEXAMETHASONE SOD PHOSPHATE 10 MG/ML 1 ML VIAL IV SCH (09:10)
[2020-11-27] MEDS: ASCORBIC ACID 500 MG TAB PO SCH (09:10)
[2020-11-27] MEDS: FAMOTIDINE 20 MG TAB PO SCH ×2 (09:11→21:38)
[2020-11-27] MEDS: ALBUTEROL HFA INHALER INHALATION PRN ×3 (09:11→16:28)
[2020-11-27] MEDS: ZINC SULFATE 220 MG CAP PO SCH (09:11)
[2020-11-27] MEDS: CHOLECALCIFEROL 25 MCG (1000 IU) TABLET PO SCH (09:11)
[2020-11-27] MEDS: ENOXAPARIN 60 MG/0.6 ML SYRINGE SQ SCH ×2 (09:11→21:38)
[2020-11-27 09:20] LABS: C Reactive Protein 143.1 mg/L (<10.0)
--- NOTE | 2020-11-27 13:01 | P.PN ---
Subjective From reports: This is a pleasant 49-year-old patient who follows with Dr. Rex Miles. Patient otherwise in good health. Patient's older daughter has got COVID. One week patient started getting slowly progressively more short of breath. Cough. No sputum. Fever and chills. Some decrease in taste and smell. No diarrhea aching all over. Significant headache. Symptoms progressed decided to come in. Patient has tested positive for COVID. On Remdesivir, Lovenox, Decadron Today-is a bit tired today. A bit short of breath. Eating some. Sitting up in a chair. Remains on 8 L of nasal cannula Hospital course: This is a pleasant 49 years old male who presents with respiratory distress found to have Covid pneumonia and acute hypoxic respiratory failure Today he is fully awake and oriented, he is active, his hypoxia is a stable and oxygen requirement is stable at 8 L via high flow nasal cannula. He states that his dyspnea is a little better as well as his coughing. He denies chest pain or diarrhea. Mild leukocytosis at 10.04 while he is on steroids. Her stop CBC and BMP is unremarkable. Approachcalcitonin is trending down to 0.13. He is currently covered with dexamethasone, Ringer lactate at 75 mL/h, Lovenox 60 mg twice daily, vitamin C and zinc, pt finished his therapy with remdesivir review of systems CONSTITUTIONAL: No fever, no malaise, no fatigue. HEENT: No recent visual problems or hearing problems. Denied any sore throat. CARDIOVASCULAR: No orthopnea, PND, no palpitations, no syncope. PULMONARY: No shortness of breath, no cough, no hemoptysis. GASTROINTESTINAL: No diarrhea, no nausea, no vomiting, no abdominal pain. Normoactive bowel sounds. NEUROLOGICAL: No headaches, no weakness, no numbness. HEMATOLOGICAL: Denies any bleeding or petechiae. Active Medications Generic Name Dose Route Start Last Admin Trade Name Freq PRN Reason Stop Dose Admin Acetaminophen 650 mg 11/21/20 03:00 11/25/20 02:55 Acetaminophen Tab 325 Mg Tab PO 650 mg Q6HR PRN Administration Mild Pain or Fever > 100.5 Albuterol Sulfate 2 puff 11/21/20 03:00 11/27/20 12:42 Albuterol Hfa Inhaler INHALATION 2 puff RT-QID PRN Administration Shortness Of Breath Or Wheezing Ascorbic Acid 1,000 mg 11/21/20 10:30 11/27/20 09:10 Ascorbic Acid 500 Mg Tab PO 1,000 mg DAILY [facility] Administration Cholecalciferol 25 mcg 11/21/20 10:30 11/27/20 09:11 Cholecalciferol 25 Mcg (1000 Iu) Tablet PO 25 mcg DAILY [facility] Administration Dexamethasone Sodium Phosphate 6 mg 11/23/20 09:00 11/27/20 09:10 Dexamethasone Sod Phosphate 10 Mg/Ml 1 Ml Vial IV 6 mg DAILY [facility] Administration Enoxaparin Sodium 60 mg 11/26/20 21:00 11/27/20 09:11 Enoxaparin 60 Mg/0.6 Ml Syringe SQ 60 mg BID [facility] Administration Famotidine 20 mg 11/21/20 13:00 11/27/20 09:11 Famotidine 20 Mg Tab PO 20 mg BID [facility] Administration Lactated Ringer's 1,000 mls @ 75 mls/hr 11/23/20 21:45 11/27/20 05:57 Lactated Ringers IV Not Given .[id number] [facility] Ibuprofen 400 mg 11/21/20 03:00 Ibuprofen 400 Mg Tab PO Q6HR PRN Mild Pain or Fever > 100.5 Naloxone HCl 0.2 mg 11/21/20 03:00 Naloxone 0.4 Mg/Ml 1 Ml Vial IV Q2M PRN Opioid Reversal Zinc Sulfate 220 mg 11/21/20 10:30 11/27/20 09:11 Zinc Sulfate 220 Mg Cap PO 220 mg DAILY [facility] Administration Objective - Vital Signs Vital signs: Vital Signs Temp 98.5 F 11/27/20 05:54 Pulse 72 11/27/20 05:54 Resp 18 11/27/20 05:54 BP 117/79 11/27/20 05:54 Pulse Ox 90 L 11/27/20 05:54 Intake & Output 11/26/20 11/27/20 11/27/20 18:59 06:59 18:59 Other: Voiding Method Toilet # Voids 1 1 - Exam GENERAL: The patient is alert and oriented x3, not in any acute distress. Well developed, well nourished. HEENT: Pupils are round and equally reacting to light. EOMI. No scleral icterus. No conjunctival pallor. Normocephalic, atraumatic. No pharyngeal erythema. No thyromegaly. CARDIOVASCULAR: S1 and S2 present. No murmurs, rubs, or gallops. PULMONARY: Chest is clear to auscultation, no wheezing or crackles. ABDOMEN: Soft, nontender, nondistended, normoactive bowel sounds. No palpable organomegaly. MUSCULOSKELETAL: No joint swelling or deformity. EXTREMITIES: No cyanosis, clubbing, or pedal edema. NEUROLOGICAL: Gross neurological examination did not reveal any focal deficits. SKIN: No rashes. no petechiae. - Labs CBC & Chem 7: 11/25/20 06:53 11/27/20 08:04 Labs: Abnormal Lab Results - Last 24 Hours (Table) 11/27/20 11/27/20 11/27/20 Range/Units 08:04 08:04 08:04 D-Dimer 7.27 H (<0.60) mg/L FEU Carbon Dioxide 31 H (22-30) mmol/L C-Reactive Protein 143.1 H (<10.0) mg/L Procalcitonin 0.13 H (0.02-0.09) ng/mL Microbiology - Last 24 Hours (Table) 11/21/20 16:00 Blood Culture - Preliminary Blood No Growth after 120 hours 11/21/20 16:20 Blood Culture - Preliminary Blood No Growth after 120 hours Assessment and Plan Assessment: -COVID 19 pneumonia. dexamethasone and Lovenox. Also vitamin C and zinc. Remdesivir: Patient finished therapy. Pulmonary team on the case -Acute hypoxic respiratory failure from COVID 19 pneumonia. . Continue with oxygen therapy as needed -Obesity BMI 34.7, weight loss measures as an outpatient. Follow with PCP DVT prophylaxis: Lovenox GI prophylaxis: Pepcid, Prognosis is guarded
--- NOTE | 2020-11-27 15:15 | P.PN ---
Subjective Progress Note Date: 11/27/20 This is a very pleasant 49-year-old gentleman who follows with Dr. Miles is his primary care provider. He has no significant past medical history. No home medications. He presented here to the emergency room early this morning with complaints of increasing shortness of breath, weakness, fatigue, chills, body aches muscle pain. He felt he had the woods virus. He does have a daughter who is currently positive. His symptoms have been going on for approximately 1 week now. Chest x-ray does show diffuse bilateral patchy opacities more so on the right lung. White count 9.5. Hemoglobin 15.5. Lymphocytes 0.7. Sodium 129. Potassium 3.6. Creatinine 1.08. LDH 2115. C-reactive protein 233. Cor nury virus not detected. Patient is seen today in consultation in the emergency room. He is currently sitting up on a stretcher. Awake and alert in no acute distress. He is requiring 6 L high flow nasal cannula to maintain O2 saturations in the 90s. He said T-max of 103.2. Currently afebrile. His received Decadron. Motrin, albuterol. Progress note dated 11/22/2020. This is a pleasant 49-year-old male who sees Dr. Rex Miles as his primary care provider. He has no significant past medical history. He takes no medications at home. He presented to the emergency room with complaints of increasing shortness of breath, he is, fatigue, chills, body aches, muscle pain. He thought he might have COVID 19. He was exposed to his daughter who tested positive. His symptoms have been present for about one week or so. Chest x-ray showed diffuse bilateral patchy infiltrates. COVID testing here was negative. Currently, he is on O2 high flow oxygen, 8 L, with a saturation of 90%. White count is 12.5, hemoglobin 15.6, hematocrit 46.4, platelet count 319,000. D- dimer was 0.91. Sodium 135, potassium 4.4, chlorides 95, CO2 30, anion gap 10, BUN 25, and creatinine 1.3. His repeat test was in fact positive. Progress note dated 11/23/2020. Pleasant 49-year-old male, who sees Dr. Rex Miles as his primary. He has no symptoms and past medical history, and takes no medications at home. He presented to the emergency department with complaints of increasing shortness of breath, fatigue, chills, body aches, and muscle pain. He thought he might have COVID 19. He was apparently exposed to his daughter who tested positive. His initial test was negative, but his symptoms, x-rays, and laboratory data all pointed towards coronavirus as the etiology of his symptoms. Sure enough, his repeat test was positive. D-dimer today was 1.24. C-reactive protein was 82.9. The patient is feeling maybe a bit better today than he did yesterday. Currently he is on 8 L high flow O2, with saturations of 93%. Chest x-ray showed stable patchy bilateral infiltrates. On today's evaluation of 11/24/2020, the patient is clinically getting better and he feels that he is less short of breath. Nevertheless, his oxidation slightly gotten worse and is up to 12 L about 2 by nasal cannula. Note that yesterday was only on 8 L. He has no fever. No nausea or vomiting. He has occasional cough. On examination is crackles left more than right. Inflammatory markers has not been checked for a few days. He remains on Decadron 6 mg per 24 hours. He is also on therapeutic doses of Lovenox. His d- dimer is at 2.27. The chest x-ray showing pulmonary infiltrates, rather symmetrical with worse on the left. No other complaints otherwise for now. 11/25/2020 I'm seeing the patient for a follow-up. Note that the patient was oxygenation had gotten worse yesterday and was up to 12 L of oxygen by nasal cannula. On today's evaluation he is still on 12 L and he remains on Decadron 6 mg every 24 hours and he is also on Lovenox. He is also receiving Sebastian and he is on day #4. No improvement in his oxygenation since yesterday. On his blood work, the patient has a CRP of 44.2 and this was done from yesterday. LDH has not been measured. This history monitored. Renal function stable. Electrodes are stable. D-dimer is at 2.27 from yesterday. He is having episodic cough. He has shortness of breath with activity. Quite comfortable at rest. No nausea. No vomiting. No abdominal pain. No chest pain. On 11/26/2020, the patient is being seen for a follow-up. The patient is currently down to 8 L of oxygen by nasal cannula and pulse is around 92%. He is sitting up on a chair. Is a bit anxious and is frustrated on the slow course of his improvement. I answered all of his questions to satisfaction. In fact, I will today's condition is stable and there has been some mild improvement in his oxygenation and oxygen requirements as the patient is currently down to 8 L flow. No chest pain. No nausea. No vomiting. No diarrhea. No abdominal pain. No other new complaints otherwise for now. In terms of his blood work, the d-dimer is up to 11, LDH level is down to 584 and the CRP level is down to 11.9. The patient is doing well otherwise. Has no specific complaints. He is on day 5 of REM. 11/27/2020 patient seen in follow-up on medical floor, he denies any worsening dyspnea, he states his breathing is about the same, no complaints of chest discomfort, no worsening cough, occasional cough which is nonproductive. Today's labs have been reviewed showing improving d-dimer and inflammatory markers, has finished Remdesivir treatment, he remains Decadron 6 mg daily, lovenox 60 mg twice daily, vitamins. His has stable vital signs are then on oxygen at 8 L, no fever or chills, appetite is fair, no nausea vomiting or diarrhea, still on IV fluids with LR at a rate of 75 ML per hour Objective - Vital Signs Vital signs: Vital Signs Temp 98.3 F 11/27/20 14:38 Pulse 73 11/27/20 14:38 Resp 20 11/27/20 14:38 BP 115/74 11/27/20 14:38 Pulse Ox 94 L 11/27/20 14:38 Intake & Output 11/26/20 11/27/20 11/27/20 18:59 06:59 18:59 Other: Voiding Method Toilet # Voids 1 1 - Exam GENERAL EXAM: Alert, pleasant, 49-year-old white male, on 8 L of oxygen with a pulse ox of 90-91% comfortable in no apparent distress. HEAD: Normocephalic/atraumatic. EYES: Normal reaction of pupils, equal size. Conjunctiva pink, sclera white. NOSE: Clear with pink turbinates. THROAT: No erythema or exudates. NECK: No masses, no JVD, no thyroid enlargement, no adenopathy. CHEST: No chest wall deformity. Symmetrical expansion. LUNGS: Equal air entry with crackles at the left lower base CVS: Regular rate and rhythm, normal S1 and S2, no gallops, no murmurs, no rubs ABDOMEN: Soft, nontender. No hepatosplenomegaly, normal bowel sounds, no guarding or rigidity. EXTREMITIES: No clubbing, no edema, no cyanosis, 2+ pulses and upper and lower extremities. MUSCULOSKELETAL: Muscle strength and tone normal. SPINE: No scoliosis or deformity SKIN: No rashes CENTRAL NERVOUS SYSTEM: Alert and oriented -3. No focal deficits, tone is normal in all 4 extremities. PSYCHIATRIC: Alert and oriented -3. Appropriate affect. Intact judgment and insight. - Labs CBC & Chem 7: 11/25/20 06:53 11/27/20 08:04 Labs: Abnormal Lab Results - Last 24 Hours (Table) 11/27/20 11/27/20 11/27/20 Range/Units 08:04 08:04 08:04 D-Dimer 7.27 H (<0.60) mg/L FEU Carbon Dioxide 31 H (22-30) mmol/L C-Reactive Protein 143.1 H (<10.0) mg/L Procalcitonin 0.13 H (0.02-0.09) ng/mL Microbiology - Last 24 Hours (Table) 11/21/20 16:00 Blood Culture - Preliminary Blood No Growth after 120 hours 11/21/20 16:20 Blood Culture - Preliminary Blood No Growth after 120 hours Assessment and Plan Plan: 1 Acute hypoxemic respiratory failure, secondary to COVID 19 pneumonia/pneumonitis, testing positive on his second test. The patient is currently on 8 L of oxygen by nasal cannula. He has crackles left more than right. Inflammatory markers need to be rechecked including LDH, CRP are declining and the d-dimer is up to 11.02... We'll also obtain a baseline pro- calcitonin is pending. The patient is on Decadron. He has completed a course of Remdesivir yesterday on 11/26/2020 2 Elevated inflammatory markers secondary to COVID 19 pneumonia. 3 Fever, secondary to COVID 19. 4 Mild hyponatremia, resolved. Plan: Current medical treatment, same dose Lovenox, same dose Decadron, patient has completed his Remdesivir course, inflammatory markers are improving, although we have not been able to wean down his FiO2 much. Or tomorrow, follow up infla mmatory markers, we will decrease IV fluids down to KVO, no fever or chills, clinically he feels no worse. We'll continue to follow I performed a history & physical examination of the patient and discussed their management with my nurse practitioner, Mayra Cortes. I reviewed the nurse practitioner's note and agree with the documented findings and plan of care. Lung sounds are positive for diminished breath sounds. The findings and the impression was discussed with the patient. I attest to the documentation by the nurse practitioner. Time with Patient: Less than 30
[2020-11-27 15:33] VITALS: BMI 34.7
--- NOTE | 2020-11-27 18:50 | PN ---
PROGRESS NOTE DATE OF SERVICE: 11/27/2020 REASON FOR FOLLOWUP: COVID-19 pneumonia. INTERVAL HISTORY: The patient is currently afebrile. The patient is breathing slightly comfortably. The patient denies having any chest pain. He did have a cough, not bringing up any sputum. No nausea, no vomiting, no abdominal pain or diarrhea. PHYSICAL EXAMINATION: Blood pressure 115/74 with a pulse of 78, temperature 98.3. He is 94% on 8 L nasal cannula. General description is a middle-aged male up in the bed in no distress. RESPIRATORY SYSTEM: Unlabored breathing. Some coarse crackles at the base. No wheeze. HEART: S1, S2. Regular rate and rhythm. ABDOMEN: Soft. No tenderness. LABS: D-dimer 7.27. CRP is 143. Procalcitonin 0.13. DIAGNOSTIC IMPRESSION AND PLAN: Patient with acute COVID-19 pneumonia. Patient has completed his remdesivir therapy. Still requiring high-flow oxygen, on dexamethasone and Lovenox. May benefit from Actemra. Will discuss with Pulmonary. Continue with supportive care. MMODL / IJN: [id number] /
[2020-11-28] MEDS: ASCORBIC ACID 500 MG TAB PO SCH (08:07)
[2020-11-28] MEDS: FAMOTIDINE 20 MG TAB PO SCH ×2 (08:07→21:12)
[2020-11-28] MEDS: ZINC SULFATE 220 MG CAP PO SCH (08:07)
[2020-11-28] MEDS: CHOLECALCIFEROL 25 MCG (1000 IU) TABLET PO SCH (08:07)
[2020-11-28] MEDS: ENOXAPARIN 60 MG/0.6 ML SYRINGE SQ SCH ×2 (08:08→21:12)
[2020-11-28] MEDS: DEXAMETHASONE SOD PHOSPHATE 10 MG/ML 1 ML VIAL IV SCH (08:08)
--- NOTE | 2020-11-28 09:31 | XR ---
EXAMINATION TYPE: XR chest 1V portable DATE OF EXAM: 11/28/2020 COMPARISON: Chest x-ray 11/26/2020 HISTORY: Covid 19, shortness of breath TECHNIQUE: Single frontal view of the chest is obtained. FINDINGS: Bilateral airspace disease is again noted. No evident pneumothorax or pleural effusion. Ca rdiac mediastinal silhouette is stable. IMPRESSION: Correlate for pneumonia, follow-up recommended
[2020-11-28 10:18] LABS: C Reactive Protein 10.7 mg/dL (0.0-0.8)
--- NOTE | 2020-11-28 13:20 | P.PN ---
Subjective From reports: This is a pleasant 49-year-old patient who follows with Dr. Rex Miles. Patient otherwise in good health. Patient's older daughter has got COVID. One week patient started getting slowly progressively more short of breath. Cough. No sputum. Fever and chills. Some decrease in taste and smell. No diarrhea aching all over. Significant headache. Symptoms progressed decided to come in. Patient has tested positive for COVID. On Remdesivir, Lovenox, Decadron Today-is a bit tired today. A bit short of breath. Eating some. Sitting up in a chair. Remains on 8 L of nasal cannula Hospital course: This is a pleasant 49 years old male who presents with respiratory distress found to have Covid pneumonia and acute hypoxic respiratory failure Today he is fully awake and oriented, he is active, his hypoxia is a stable and oxygen requirement is stable at 8 L via high flow nasal cannula. He states that his dyspnea is a little better as well as his coughing. He denies chest pain or diarrhea. Mild leukocytosis at 10.04 while he is on steroids. Her stop CBC and BMP is unremarkable. procalcitonin is trending down to 0.13. He is currently covered with dexamethasone, Ringer lactate at 75 mL/h, Lovenox 60 mg twice daily, vitamin C and zinc, pt finished his therapy with remdesivir 11/28/2020 Patient looks clinically stable and he feels subjective improvement in his dyspnea. He is still on 5 L oxygen via high flow nasal cannula. D-dimer stable at 7.4 today. As well as high LDH at 520 and high C-reactive protein at 10.7. Repeat chest x-ray: Correlates for pneumonia Patient remains on dexamethasone, vitamin C, zinc and Lovenox 60 mg twice daily. review of systems CONSTITUTIONAL: No fever, no malaise, no fatigue. HEENT: No recent visual problems or hearing problems. Denied any sore throat. CARDIOVASCULAR: No orthopnea, PND, no palpitations, no syncope. PULMONARY: No shortness of breath, no cough, no hemoptysis. GASTROINTESTINAL: No diarrhea, no nausea, no vomiting, no abdominal pain. Normoactive bowel sounds. NEUROLOGICAL: No headaches, no weakness, no numbness. HEMATOLOGICAL: Denies any bleeding or petechiae. Active Medications Generic Name Dose Route Start Last Admin Trade Name Freq PRN Reason Stop Dose Admin Acetaminophen 650 mg 11/21/20 03:00 11/25/20 02:55 Acetaminophen Tab 325 Mg Tab PO 650 mg Q6HR PRN Administration Mild Pain or Fever > 100.5 Albuterol Sulfate 2 puff 11/21/20 03:00 11/27/20 16:28 Albuterol Hfa Inhaler INHALATION 2 puff RT-QID PRN Administration Shortness Of Breath Or Wheezing Ascorbic Acid 1,000 mg 11/21/20 10:30 11/28/20 08:07 Ascorbic Acid 500 Mg Tab PO 1,000 mg DAILY ALLYN Administration Cholecalciferol 25 mcg 11/21/20 10:30 11/28/20 08:07 Cholecalciferol 25 Mcg (1000 Iu) Tablet PO 25 mcg DAILY ALLYN Administration Dexamethasone Sodium Phosphate 6 mg 11/23/20 09:00 11/28/20 08:08 Dexamethasone Sod Phosphate 10 Mg/Ml 1 Ml Vial IV 6 mg DAILY ALLYN Administration Enoxaparin Sodium 60 mg 11/26/20 21:00 11/28/20 08:08 Enoxaparin 60 Mg/0.6 Ml Syringe SQ 60 mg BID ALLYN Administration Famotidine 20 mg 11/21/20 13:00 11/28/20 08:07 Famotidine 20 Mg Tab PO 20 mg BID ALLYN Administration Lactated Ringer's 1,000 mls @ 20 mls/hr 11/23/20 21:45 11/27/20 21:38 Lactated Ringers IV 20 mls/hr .Q24H ALLYN Administration Ibuprofen 400 mg 11/21/20 03:00 Ibuprofen 400 Mg Tab PO Q6HR PRN Mild Pain or Fever > 100.5 Naloxone HCl 0.2 mg 11/21/20 03:00 Naloxone 0.4 Mg/Ml 1 Ml Vial IV Q2M PRN Opioid Reversal Zinc Sulfate 220 mg 11/21/20 10:30 11/28/20 08:07 Zinc Sulfate 220 Mg Cap PO 220 mg DAILY ALLYN Administration Objective - Vital Signs Vital signs: Vital Signs Temp 98.5 F 11/28/20 09:07 Pulse 80 11/28/20 09:07 Resp 18 11/28/20 09:07 BP 119/76 11/28/20 09:07 Pulse Ox 92 L 11/28/20 09:07 Intake & Output 11/27/20 11/28/20 11/28/20 18:59 06:59 18:59 Intake Total 240 Balance 240 Weight 122.47 kg Intake: Intake, IV Titration 240 Amount Lactated Ringers 1,000 ml 240 @ 20 mls/hr IV .Q24H [facility] Rx#:[id number] Other: Voiding Method Toilet # Voids 3 - Exam GENERAL: The patient is alert and oriented x3, not in any acute distress. Well developed, well nourished. HEENT: Pupils are round and equally reacting to light. EOMI. No scleral icterus. No conjunctival pallor. Normocephalic, atraumatic. No pharyngeal erythema. No thyromegaly. CARDIOVASCULAR: S1 and S2 present. No murmurs, rubs, or gallops. PULMONARY: Chest is clear to auscultation, no wheezing or crackles. ABDOMEN: Soft, nontender, nondistended, normoactive bowel sounds. No palpable organomegaly. MUSCULOSKELETAL: No joint swelling or deformity. EXTREMITIES: No cyanosis, clubbing, or pedal edema. NEUROLOGICAL: Gross neurological examination did not reveal any focal deficits. SKIN: No rashes. no petechiae. - Labs CBC & Chem 7: 11/25/20 06:53 11/27/20 08:04 Labs: Abnormal Lab Results - Last 24 Hours (Table) 11/28/20 11/28/20 Range/Units 06:49 06:49 D-Dimer 7.41 H (<0.60) mg/L FEU Lactate Dehydrogenase 520 H (120-246) U/L C-Reactive Protein 10.7 H (0.0-0.8) mg/dL Microbiology - Last 24 Hours (Table) 11/21/20 16:20 Blood Culture - Final Blood No Growth after 144 hours 11/21/20 16:00 Blood Culture - Final Blood No Growth after 144 hours Assessment and Plan Assessment: -COVID 19 pneumonia. dexamethasone and Lovenox. Also vitamin C and zinc. Remdesivir: Patient finished therapy. Pulmonary team on the case -Acute hypoxic respiratory failure from COVID 19 pneumonia. . Continue with oxygen therapy as needed -Obesity BMI 34.7, weight loss measures as an outpatient. Follow with PCP DVT prophylaxis: Lovenox GI prophylaxis: Pepcid, Prognosis is guarded
--- NOTE | 2020-11-28 13:55 | P.PN ---
Subjective Progress Note Date: 11/28/20 This is a very pleasant 49-year-old gentleman who follows with Dr. Miles is his primary care provider. He has no significant past medical history. No home medications. He presented here to the emergency room early this morning with complaints of increasing shortness of breath, weakness, fatigue, chills, body aches muscle pain. He felt he had the woods virus. He does have a daughter who is currently positive. His symptoms have been going on for approximately 1 week now. Chest x-ray does show diffuse bilateral patchy opacities more so on the right lung. White count 9.5. Hemoglobin 15.5. Lymphocytes 0.7. Sodium 129. Potassium 3.6. Creatinine 1.08. LDH 2115. C-reactive protein 233. Cor nury virus not detected. Patient is seen today in consultation in the emergency room. He is currently sitting up on a stretcher. Awake and alert in no acute distress. He is requiring 6 L high flow nasal cannula to maintain O2 saturations in the 90s. He said T-max of 103.2. Currently afebrile. His received Decadron. Motrin, albuterol. Progress note dated 11/22/2020. This is a pleasant 49-year-old male who sees Dr. Rex Miles as his primary care provider. He has no significant past medical history. He takes no medications at home. He presented to the emergency room with complaints of increasing shortness of breath, he is, fatigue, chills, body aches, muscle pain. He thought he might have COVID 19. He was exposed to his daughter who tested positive. His symptoms have been present for about one week or so. Chest x-ray showed diffuse bilateral patchy infiltrates. COVID testing here was negative. Currently, he is on O2 high flow oxygen, 8 L, with a saturation of 90%. White count is 12.5, hemoglobin 15.6, hematocrit 46.4, platelet count 319,000. D- dimer was 0.91. Sodium 135, potassium 4.4, chlorides 95, CO2 30, anion gap 10, BUN 25, and creatinine 1.3. His repeat test was in fact positive. Progress note dated 11/23/2020. Pleasant 49-year-old male, who sees Dr. Rex Miles as his primary. He has no symptoms and past medical history, and takes no medications at home. He presented to the emergency department with complaints of increasing shortness of breath, fatigue, chills, body aches, and muscle pain. He thought he might have COVID 19. He was apparently exposed to his daughter who tested positive. His initial test was negative, but his symptoms, x-rays, and laboratory data all pointed towards coronavirus as the etiology of his symptoms. Sure enough, his repeat test was positive. D-dimer today was 1.24. C-reactive protein was 82.9. The patient is feeling maybe a bit better today than he did yesterday. Currently he is on 8 L high flow O2, with saturations of 93%. Chest x-ray showed stable patchy bilateral infiltrates. On today's evaluation of 11/24/2020, the patient is clinically getting better and he feels that he is less short of breath. Nevertheless, his oxidation slightly gotten worse and is up to 12 L about 2 by nasal cannula. Note that yesterday was only on 8 L. He has no fever. No nausea or vomiting. He has occasional cough. On examination is crackles left more than right. Inflammatory markers has not been checked for a few days. He remains on Decadron 6 mg per 24 hours. He is also on therapeutic doses of Lovenox. His d- dimer is at 2.27. The chest x-ray showing pulmonary infiltrates, rather symmetrical with worse on the left. No other complaints otherwise for now. 11/25/2020 I'm seeing the patient for a follow-up. Note that the patient was oxygenation had gotten worse yesterday and was up to 12 L of oxygen by nasal cannula. On today's evaluation he is still on 12 L and he remains on Decadron 6 mg every 24 hours and he is also on Lovenox. He is also receiving Sebastian and he is on day #4. No improvement in his oxygenation since yesterday. On his blood work, the patient has a CRP of 44.2 and this was done from yesterday. LDH has not been measured. This history monitored. Renal function stable. Electrodes are stable. D-dimer is at 2.27 from yesterday. He is having episodic cough. He has shortness of breath with activity. Quite comfortable at rest. No nausea. No vomiting. No abdominal pain. No chest pain. On 11/26/2020, the patient is being seen for a follow-up. The patient is currently down to 8 L of oxygen by nasal cannula and pulse is around 92%. He is sitting up on a chair. Is a bit anxious and is frustrated on the slow course of his improvement. I answered all of his questions to satisfaction. In fact, I will today's condition is stable and there has been some mild improvement in his oxygenation and oxygen requirements as the patient is currently down to 8 L flow. No chest pain. No nausea. No vomiting. No diarrhea. No abdominal pain. No other new complaints otherwise for now. In terms of his blood work, the d-dimer is up to 11, LDH level is down to 584 and the CRP level is down to 11.9. The patient is doing well otherwise. Has no specific complaints. He is on day 5 of REM. 11/27/2020 patient seen in follow-up on medical floor, he denies any worsening dyspnea, he states his breathing is about the same, no complaints of chest discomfort, no worsening cough, occasional cough which is nonproductive. Today's labs have been reviewed showing improving d-dimer and inflammatory markers, has finished Remdesivir treatment, he remains Decadron 6 mg daily, lovenox 60 mg twice daily, vitamins. His has stable vital signs are then on oxygen at 8 L, no fever or chills, appetite is fair, no nausea vomiting or diarrhea, still on IV fluids with LR at a rate of 75 ML per hour On 11/28/2020 patient seen in follow-up on medical floor. He still remains on 8 L of oxygen, and his pulse ox is 90-92%, his been afebrile, hemodynamically stable, despite requiring high flow oxygen patient looks comfortable, breathing comfortably, mild cough, improving, no complaints of chest discomfort, today's chest x-ray shows bilateral airspace persistence. Today's labs have been reviewed, d-dimer is relatively the same, 7.41. LDH and CRP are relatively stable as well, LDH is 520, and CRP is 10.7, pro-calcitonin level is negative at 0.13. He remains on intermediate dosing of Lovenox at 60 mg subcutaneously twice daily, and remains on Decadron 6 mg daily, and vitamin C, vitamin D, and zinc Objective - Vital Signs Vital signs: Vital Signs Temp 98.5 F 03/26/21 09:07 Pulse 80 11/28/20 09:07 Resp 18 11/28/20 09:07 BP 119/76 11/28/20 09:07 Pulse Ox 92 L 11/28/20 09:07 Intake & Output 11/27/20 11/28/20 11/28/20 18:59 06:59 18:59 Intake Total 240 Balance 240 Weight 122.47 kg Intake: Intake, IV Titration 240 Amount Lactated Ringers 1,000 ml 240 @ 20 mls/hr IV .Q24H [facility] Rx#:[id number] Other: Voiding Method Toilet # Voids 3 - Exam GENERAL EXAM: Alert, pleasant, 49-year-old white male, on 8 L of oxygen with a pulse ox of 90-91% comfortable in no apparent distress. HEAD: Normocephalic/atraumatic. EYES: Normal reaction of pupils, equal size. Conjunctiva pink, sclera white. NOSE: Clear with pink turbinates. THROAT: No erythema or exudates. NECK: No masses, no JVD, no thyroid enlargement, no adenopathy. CHEST: No chest wall deformity. Symmetrical expansion. LUNGS: Equal air entry with crackles at the left lower base CVS: Regular rate and rhythm, normal S1 and S2, no gallops, no murmurs, no rubs ABDOMEN: Soft, nontender. No hepatosplenomegaly, normal bowel sounds, no guarding or rigidity. EXTREMITIES: No clubbing, no edema, no cyanosis, 2+ pulses and upper and lower extremities. MUSCULOSKELETAL: Muscle strength and tone normal. SPINE: No scoliosis or deformity SKIN: No rashes CENTRAL NERVOUS SYSTEM: Alert and oriented -3. No focal deficits, tone is normal in all 4 extremities. PSYCHIATRIC: Alert and oriented -3. Appropriate affect. Intact judgment and insight. - Labs CBC & Chem 7: 11/25/20 06:53 11/27/20 08:04 Labs: Abnormal Lab Results - Last 24 Hours (Table) 11/28/20 11/28/20 Range/Units 06:49 06:49 D-Dimer 7.41 H (<0.60) mg/L FEU Lactate Dehydrogenase 520 H (120-246) U/L C-Reactive Protein 10.7 H (0.0-0.8) mg/dL Microbiology - Last 24 Hours (Table) 11/21/20 16:20 Blood Culture - Final Blood No Growth after 144 hours 11/21/20 16:00 Blood Culture - Final Blood No Growth after 144 hours Assessment and Plan Plan: 1 Acute hypoxemic respiratory failure, secondary to COVID 19 pneumonia/pneumonitis, testing positive on his second test. The patient is currently on 8 L of oxygen by nasal cannula. He has crackles left more than right. Inflammatory markers need to be rechecked including LDH, CRP are declining and the d-dimer is up to 11.02... We'll also obtain a baseline pro- calcitonin is pending. The patient is on Decadron. He has completed a course of Remdesivir yesterday on 11/26/2020 2 Elevated inflammatory markers secondary to COVID 19 pneumonia. 3 Fever, secondary to COVID 19. 4 Mild hyponatremia, resolved. Plan: Continue current medical treatment, continue attempting to wean down FiO2, we turned him down to 6 L, we'll recheck his pulse ox in half an hour, increase activity as tolerated, encourage deep breathing and coughing, continue same dose Decadron, continue Lovenox, follow-up d-dimer and inflammatory markers, follow- up CBC and BMP and chest x-ray tomorrow I performed a history & physical examination of the patient and discussed their management with my nurse practitioner, Mayra Cortes. I reviewed the nurse practitioner's note and agree with the documented findings and plan of care. Lung sounds are positive for diminished breath sounds. The findings and the impression was discussed with the patient. I attest to the documentation by the nurse practitioner. Time with Patient: Less than 30
--- NOTE | 2020-11-28 15:42 | PN ---
PROGRESS NOTE DATE OF SERVICE: 11/28/2020. REASON FOR FOLLOWUP: COVID-19 pneumonia. INTERVAL HISTORY: The patient is currently afebrile. The patient is breathing comfortably. The patient is still requiring supplemental oxygen. The patient denies having any chest pain. He did have some cough, not bringing up any sputum. No abdominal pain. No diarrhea. PHYSICAL EXAMINATION: Blood pressure is 119/76, pulse of 80, temperature 98.5. He is 92% on 8 L high-flow oxygen. General description is a middle-aged male up in the chair in no distress. RESPIRATORY SYSTEM: Unlabored breathing. A few coarse crackles bilaterally. No wheeze. HEART: S1, S2. Regular rate and rhythm. ABDOMEN: Soft, no tenderness. LABS: D-dimer 7.41. LDH is 520. CRP is 10.7. DIAGNOSTIC IMPRESSION AND PLAN: Patient with acute COVID-19 pneumonia, has completed his remdesivir therapy. Still requiring high-flow oxygen. On dexamethasone, Lovenox and ascorbic acid. May benefit from Actemra. Continue supportive care. MMODL / IJN: [id number] /
[2020-11-28] MEDS: ALBUTEROL HFA INHALER INHALATION PRN ×2 (15:51→20:14)
[2020-11-28] MEDS: LACTATED RINGERS 1,000 ML IV SCH (20:25)
[2020-11-29] MEDS: ALBUTEROL HFA INHALER INHALATION PRN ×2 (07:15→11:00)
[2020-11-29] MEDS: CHOLECALCIFEROL 25 MCG (1000 IU) TABLET PO SCH (08:32)
[2020-11-29] MEDS: ASCORBIC ACID 500 MG TAB PO SCH (08:32)
[2020-11-29] MEDS: ZINC SULFATE 220 MG CAP PO SCH (08:32)
[2020-11-29] MEDS: FAMOTIDINE 20 MG TAB PO SCH (08:32)
[2020-11-29] MEDS: DEXAMETHASONE SOD PHOSPHATE 10 MG/ML 1 ML VIAL IV SCH (08:32)
[2020-11-29] MEDS: ENOXAPARIN 60 MG/0.6 ML SYRINGE SQ SCH (08:38)
[2020-11-29 09:07] VITALS: RESP 20
--- NOTE | 2020-11-29 10:33 | P.PN ---
Subjective Progress Note Date: 11/29/20 This is a very pleasant 49-year-old gentleman who follows with Dr. Miles is his primary care provider. He has no significant past medical history. No home medications. He presented here to the emergency room early this morning with complaints of increasing shortness of breath, weakness, fatigue, chills, body aches muscle pain. He felt he had the woods virus. He does have a daughter who is currently positive. His symptoms have been going on for approximately 1 week now. Chest x-ray does show diffuse bilateral patchy opacities more so on the right lung. White count 9.5. Hemoglobin 15.5. Lymphocytes 0.7. Sodium 129. Potassium 3.6. Creatinine 1.08. LDH 2115. C-reactive protein 233. Woods virus not detected. Patient is seen today in consultation in the emergency room. He is currently sitting up on a stretcher. Awake and alert in no acute distress. He is requiring 6 L high flow nasal cannula to maintain O2 saturations in the 90s. He said T-max of 103.2. Currently afebrile. His received Decadron. Motrin, albuterol. Progress note dated 11/22/2020. This is a pleasant 49-year-old male who sees Dr. Rex Miles as his primary care provider. He has no significant past medical history. He takes no medications at home. He presented to the emergency room with complaints of increasing shortness of breath, he is, fatigue, chills, body aches, muscle pain. He thought he might have COVID 19. He was exposed to his daughter who tested positive. His symptoms have been present for about one week or so. Chest x-ray showed diffuse bilateral patchy infiltrates. COVID testing here was negative. Currently, he is on O2 high flow oxygen, 8 L, with a saturation of 90%. White count is 12.5, hemoglobin 15.6, hematocrit 46.4, platelet count 319,000. D- dimer was 0.91. Sodium 135, potassium 4.4, chlorides 95, CO2 30, anion gap 10, BUN 25, and creatinine 1.3. His repeat test was in fact positive. Progress note dated 11/23/2020. Pleasant 49-year-old male, who sees Dr. Rex Miles as his primary. He has no symptoms and past medical history, and takes no medications at home. He presented to the emergency department with complaints of increasing shortness of breath, fatigue, chills, body aches, and muscle pain. He thought he might have COVID 19. He was apparently exposed to his daughter who tested positive. His initial test was negative, but his symptoms, x-rays, and laboratory data all pointed towards coronavirus as the etiology of his symptoms. Sure enough, his repeat test was positive. D-dimer today was 1.24. C-reactive protein was 82.9. The patient is feeling maybe a bit better today than he did yesterday. Currently he is on 8 L high flow O2, with saturations of 93%. Chest x-ray showed stable patchy bilateral infiltrates. On today's evaluation of 11/24/2020, the patient is clinically getting better and he feels that he is less short of breath. Nevertheless, his oxidation slightly gotten worse and is up to 12 L about 2 by nasal cannula. Note that yesterday was only on 8 L. He has no fever. No nausea or vomiting. He has o ccasional cough. On examination is crackles left more than right. Inflammatory markers has not been checked for a few days. He remains on Decadron 6 mg per 24 hours. He is also on therapeutic doses of Lovenox. His d-dimer is at 2.27. The chest x-ray showing pulmonary infiltrates, rather symmetrical with worse on the left. No other complaints otherwise for now. 11/25/2020 I'm seeing the patient for a follow-up. Note that the patient was oxygenation had gotten worse yesterday and was up to 12 L of oxygen by nasal cannula. On today's evaluation he is still on 12 L and he remains on Decadron 6 mg every 24 hours and he is also on Lovenox. He is also receiving Sebastian and he is on day #4. No improvement in his oxygenation since yesterday. On his blood work, the patient has a CRP of 44.2 and this was done from yesterday. LDH has not been measured. This history monitored. Renal function stable. Electrodes are stable. D-dimer is at 2.27 from yesterday. He is having episodic cough. He has shortness of breath with activity. Quite comfortable at rest. No nausea. No vomiting. No abdominal pain. No chest pain. On 11/26/2020, the patient is being seen for a follow-up. The patient is currently down to 8 L of oxygen by nasal cannula and pulse is around 92%. He is sitting up on a chair. Is a bit anxious and is frustrated on the slow course of his improvement. I answered all of his questions to satisfaction. In fact, I will today's condition is stable and there has been some mild improvement in his oxygenation and oxygen requirements as the patient is currently down to 8 L flow. No chest pain. No nausea. No vomiting. No diarrhea. No abdominal pain. No other new complaints otherwise for now. In terms of his blood work, the d-dimer is up to 11, LDH level is down to 584 and the CRP level is down to 11.9. The patient is doing well otherwise. Has no specific complaints. He is on day 5 of REM. 11/27/2020 patient seen in follow-up on medical floor, he denies any worsening dyspnea, he states his breathing is about the same, no complaints of chest di scomfort, no worsening cough, occasional cough which is nonproductive. Today's labs have been reviewed showing improving d-dimer and inflammatory markers, has finished Remdesivir treatment, he remains Decadron 6 mg daily, lovenox 60 mg twice daily, vitamins. His has stable vital signs are then on oxygen at 8 L, no fever or chills, appetite is fair, no nausea vomiting or diarrhea, still on IV fluids with LR at a rate of 75 ML per hour On 11/28/2020 patient seen in follow-up on medical floor. He still remains on 8 L of oxygen, and his pulse ox is 90-92%, his been afebrile, hemodynamically st able, despite requiring high flow oxygen patient looks comfortable, breathing comfortably, mild cough, improving, no complaints of chest discomfort, today's chest x-ray shows bilateral airspace persistence. Today's labs have been reviewed, d-dimer is relatively the same, 7.41. LDH and CRP are relatively stable as well, LDH is 520, and CRP is 10.7, pro-calcitonin level is negative at 0.13. He remains on intermediate dosing of Lovenox at 60 mg subcutaneously twice daily, and remains on Decadron 6 mg daily, and vitamin C, vitamin D, and zinc 11/29/2020, the patient is feeling better. He was weaned down and it was low as 2 L and with activities still desaturating in the 84-85% range and at rest is at 89%. However, this is a improvement in his oxygenation knowing that the patient was on 8 L yesterday. His blood work is showing a d-dimer of 7.41. He is on Lovenox. He is completed REM. He is on vitamin C and vitamin D in addition to Decadron. He feels well. He has no specific complaints. Objective - Vital Signs Vital signs: Vital Signs Temp 98.3 F 11/29/20 09:06 Pulse 91 11/29/20 09:06 Resp 20 11/29/20 09:06 BP 111/74 11/29/20 09:06 Pulse Ox 89 L 11/29/20 10:24 Intake & Output 11/28/20 11/29/20 11/29/20 18:59 06:59 18:59 Other: Voiding Method Toilet # Voids 5 2 # Bowel Movements 2 - Exam No acute distress, oriented 3. Currently, patient on 2 L high flow oxygen therapy. No conversational dyspnea or audible wheezing, or use of accessory muscles. HEENT examination is grossly unremarkable. Mucous membranes are moist. No oral lesions. Neck supple. Full range of motion. No adenopathy thyromegaly or neck vein distention. Cardiovascular examination reveals regular rhythm rate. S1-S2 normal. No S3 or S4. No discernible murmur noted. Heart rate is 72 bpm. Lungs reveal diffuse bilateral crackles and rhonchi. There are no wheezes. Breath sounds equal bilaterally. Exam is essentially unchanged. Abdomen soft bowel sounds are heard. No masses or tenderness. Extremities are intact. No cyanosis clubbing or edema. Skin is without rash or lesion. Neurologic examination is brief but nonfocal. - Labs CBC & Chem 7: 11/25/20 06:53 11/27/20 08:04 Assessment and Plan Plan: 1 Acute hypoxemic respiratory failure, secondary to COVID 19 pneumonia/pneumonitis, testing positive on his second test. The patient is currently on 2 L of oxygen by nasal cannula. He has crackles left more than ri ght. Neck a feeling much better. D-dimer is still elevated. I'm going to titrate the oxygen and probably bring him up to a higher flow to maintain a saturation of above 90% with rest and activity. I'm thinking this patient will end up on a oxygen flow somewhere between 3 and 4 L. 2 Elevated inflammatory markers secondary to COVID 19 pneumonia. 3 Fever, secondary to COVID 19. 4 Mild hyponatremia, resolved. Plan Continue the Decadron vitamin C, vitamin D3, zinc, Decadron, Is a dizziness to discharge this patient home today, I'm recommending Decadron 6 mg for another 5 days The patient will need home oxygen and this will be arranged for him somewhere between 3 and 4 L per minute nasal cannula. A walk test will be done. Dimer is elevated. Based on his sedentary condition and his elevated d-dimer and Covid 19 pneumonia, I'm recommending 10 mg of Xarelto for the next 30 days The patient completed REM per protocol We will continue to watch patient closely. possible home today or tomorrow depending on his oxygenation status
[2020-11-29] MEDS: LACTATED RINGERS 1,000 ML IV SCH (12:00)
[2020-11-29 13:53] VITALS: BP 120/77; PULSE 84; TEMP 98.8
--- NOTE | 2020-11-29 22:10 | P.DS ---
Providers Date of admission: 11/21/20 03:00 Attending physician: Pipo Vasques Consults: 11/21/20 03:01 Consult Physician Routine Consulting Provider: Mejia Mcpherson Consult Reason/Comments: covid Do you want consulting provider notified?: Yes Consult Physician Routine Consulting Provider: Richard Workman Consult Reason/Comments: covid Do you want consulting provider notified?: Yes Primary care physician: Rex Miles MD Hospital Course: Diagnoses: -COVID 19 pneumonia. 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 . Continue with oxygen therapy as an outpatient -Hypercoagulable state secondary to call with infection with elevated d-dimer -Obesity BMI 34.7, Hospital course: This is a pleasant 49-year-old patient who follows with Dr. Rex Miles. Patient otherwise in good health. Patient's older daughter has got COVID. One week patient started getting slowly progressively more short of breath. Cough. With fever. Chest x-ray: Diffuse bilateral patchy opacity. Patient was diagnosed with bilateral Covid pneumonia. He has been followed closely by infectious disease and pulmonary team, patient was treated with dexamethasone, vitamin C, zinc, Lovenox and IV fluid. Hypoxia present on admission improved from 12 L/m down to 4 L/m of oxygen upon discharge, oxygen provided to the patient on discharge as well. patient was s eager and insisting on going home today , also I discussed the case with pulmonary team and they cleared him for discharge. Patient will be discharged on Xarelto (D-dimer was trending up to 11.0 came down to 7.4 on discharge) per Pulmonary team recommendation ID of discharge patient denies chest pain or abdominal pain, no nausea vomiting, no change in urine or bowel habits. No fever. Patient was cleared for discharged by both pulmonary teams. Problems and management plan were discussed with the patient and he verbalized understanding and acceptance Patient was found stable and can be discharged home however he needs follow-up as an outpatient. Patient was instructed to follow up with PCP Dr. Miles within one week and patient agrees. Also patient was instructed to follow up with Dr. mcpherson in 1-2 weeks. Patient agrees to call and make appointments Physical exam Gen: patient is a AAOx3, no distress CVS: S1-S2, RRR, no murmur Lungs: B/L CTA, no wheezing Abdomen: soft, no distention, no tenderness, positive bowel sounds Extremity: no leg edema or induration Time spent more than 35 minutes Patient Condition at Discharge: Serious Plan - Discharge Summary Discharge Rx Participant: Yes New Discharge Prescriptions: New Rivaroxaban [Xarelto] 10 mg PO DAILY #30 tab Zinc Sulfate [Orazinc] 220 mg PO DAILY #30 cap Acetaminophen Tab [Tylenol] 650 mg PO Q6HR PRN tab PRN Reason: Mild Pain Or Fever > 100.5 Ascorbic Acid [Vitamin C] 1,000 mg PO DAILY #60 tab Cholecalciferol [Vitamin D3 (25 Mcg = 1000 Iu)] 25 mcg PO DAILY #30 tablet Dexamethasone [Decadron] 6 mg PO DAILY #5 tablet Famotidine [Pepcid] 20 mg PO BID 10 Days #20 tab Albuterol Inhaler [Ventolin Hfa Inhaler] 2 puff INHALATION RT-QID PRN #1 inh PRN Reason: Shortness Of Breath Or Wheezing Discharge Medication List Acetaminophen Tab [Tylenol] 650 mg PO Q6HR PRN tab 11/29/20 [Rx] Albuterol Inhaler [Ventolin Hfa Inhaler] 2 puff INHALATION RT-QID PRN #1 inh 11/29/20 [Rx] Ascorbic Acid [Vitamin C] 1,000 mg PO DAILY #60 tab 11/29/20 [Rx] Cholecalciferol [Vitamin D3 (25 Mcg = 1000 Iu)] 25 mcg PO DAILY #30 tablet 11/29/20 [Rx] Dexamethasone [Decadron] 6 mg PO DAILY #5 tablet 11/29/20 [Rx] Famotidine [Pepcid] 20 mg PO BID 10 Days #20 tab 11/29/20 [Rx] Rivaroxaban [Xarelto] 10 mg PO DAILY #30 tab 11/29/20 [Rx] Zinc Sulfate [Orazinc] 220 mg PO DAILY #30 cap 11/29/20 [Rx] Follow up Appointment(s)/Referral(s): Rex Miles MD [Primary Care Provider] - 1-2 days Mejia Mcpherson MD [STAFF PHYSICIAN] - 1 Week Patient Instructions/Handouts: Coronavirus Disease 2019 (COVID-19) Activity/Diet/Wound Care/Special Instructions: low carbohydrate diet activity is restricted till you see your doctor Discharge Disposition: HOME SELF-CARE
[2020-11-30] MEDS ORDERED: RIVAROXABAN 10 MG TAB PO SCH (09:00)
== END 2020-11-29 15:23 | disposition home or self-care (01) | DRG 871 ==
LOC: EC 00:58 → 4SSUR 03:00 → 2ORWHC 11-26 02:09
PROVIDERS: ADMIT Hospitalist; ATTEND Hospitalist
DX: A41.89 Other specified sepsis (principal); U07.1 COVID-19; J12.82 Pneumonia due to coronavirus disease 2019; J96.01 Acute respiratory failure with hypoxia; J15.9 Unspecified bacterial pneumonia; E87.1 Hypo-osmolality and hyponatremia; D68.69 Other thrombophilia; E88.09 Other disorders of plasma-protein metabolism, not elsewhere classified; D72.810 Lymphocytopenia; E66.9 Obesity, unspecified; Z68.34 Body mass index [BMI] 34.0-34.9, adult; Z88.0 Allergy status to penicillin; Z71.3 Dietary counseling and surveillance
CPT/HCPCS: 36415; 71045; 80048; 80053; 83605; 83615; 83735; 84100; 84145; 85025; 85379; 85610; 85730; 86140; 86769; 87040; 87070; 87205; 87449; 87635; 93005; 94640; 94760; 99285